=== PATIENT | female | born 1935 | race Caucasian/White ===

== ENCOUNTER 2016-08-14 18:38 | Emergency (ER) | payer MEDICARE, OTHER ==
[2016-08-14 19:14] VITALS: O2SAT 98
[2016-08-14] MEDS ORDERED: ASPIRIN TABLET 325 MG TAB PO ONE (19:42)
--- NOTE | 2016-08-14 19:48 | ED.PDOC ---
History of Present Illness - General Chief Complaint: Neuro Symptoms/Deficits Stated Complaint: numb left index and thumb for 3 days Time Seen by Provider: 08/14/16 18:45 Source: patient, family Exam Limitations: no limitations - History of Present Illness Initial Comments: the patient is an 81-year-old female presenting to the emergency room secondary to left upper extremity complaints. for a period of Approximately 3 days the patient has had the sensation that her thumb and index finger and part of the third digit of her left hand have been asleep. She has also had that same sensation to the radial aspect of her forearm and to a lesser extent her point of her left shoulder. She has also had lingering tingling mild shocking-like sensations to the lateral aspect of her left neck and shoulder as well as the radial aspect of the forearm thumb and index finger. She has had no decrease in strength. Reflexes are actually symmetrical. She has also noted that the thumb and index finger have been cooler and a little more pale for that same time. The patient is a panel clear. She is right-handed. She does not remember injuring her hand. There are no ecchymosis or obvious trauma about the hand. She did not injure her neck. She has not had any strokes. She does not take any blood thinners. She has not had any recent medication changes. She does take Celebrex for arthritis. The patient has a very strong and symmetrical radial pulse. She also has a palpable ulnar pulse. Capillary refill of the palm is good as is capillary refill of the third fourth and fifth digits. Capillary refill of the thumb and index finger are slightly delayed compared to the right hand. There is no true cyanosis and certainly no tissue . Sensation is decreased most at the tip of the index finger. sensation to fine touch largely appears otherwise intact. There is mainly the feeling of the digits being asleep. Again this is been going on for 3 days.no other focal neurological deficits. Severity: mild Improving Factors: nothing Worsening Factors: nothing Associated Symptoms: denies symptoms Allergies/Adverse Reactions: Allergies Sulfa Drugs Allergy (Unverified 07/16/13 00:50) Home Medications: Ambulatory Orders Celebrex 200 mg PO DAILY 02/20/14 Effexor 35.5 mg PO DAILY 02/20/14 Furosemide [Lasix] 40 mg PO DAILY 02/20/14 Levothyroxine Sodium 0.125 mg PO DAILY 02/20/14 Losartan Potassium 02/20/14 Metoprolol Tartrate 25 mg PO DAILY 02/20/14 Potassium 10 mg PO DAILY 02/20/14 Ropinirole ER 12 mg PO DAILY 02/20/14 Review of Systems - Review of Systems Constitutional: States: no symptoms reported EENTM: States: no symptoms reported Respiratory: States: no symptoms reported Cardiology: States: no symptoms reported Gastrointestinal/Abdominal: States: no symptoms reported Genitourinary: States: no symptoms reported Musculoskeletal: States: see HPI Skin: States: see HPI Neurological: States: see HPI Endocrine: States: no symptoms reported All other Systems: No Change from Baseline Past Medical History (General) - Patient Medical History Hx Stroke: No Hx Asthma: Yes Hx Cardiac Disorders: Yes Hx Congestive Heart Failure: No Hx Hypertension: Yes Hx Thyroid Disease: Yes Hx Diabetes: No Hx Gastroesophageal Reflux: Yes Hx MRSA: No - Vaccination History Hx Tetanus, Diphtheria Vaccination: Yes Hx Influenza Vaccination: Yes Hx Pneumococcal Vaccination: Yes Immunizations Up to Date: Yes - Social History Hx Tobacco Use: No Hx Alcohol Use: Yes - occasional Hx Substance Use: No Hx Substance Use Treatment: No Hx Depression: Yes Feels Threatened In Home Enviroment: No Feels Threatened In a Relationship: No Hx Physical Abuse: No Hx Emotional Abuse: No Hx Suspected Abuse: No - Female History Patient is a Female of Child Bearing Age (10 -59 yrs old): No Patient : No - Triage Comment ED Triage Comment: NIHSS 0 at time of triage, upper and lower ext pulses equally strong, cap refill is 5 sec to the left index finger and thumb. no signs of distress, no Chest pain or SOB Family Medical History - Family History Mother Family History: Unknown Living Status: Physical Exam - Physical Exam General Appearance: Alert, Comfortable, No apparent distress Eye Exam: bilateral normal Ears, Nose, Throat: hearing grossly normal, normal ENT inspection, normal pharynx Neck: full range of motion, supple Respiratory: chest non-tender, lungs clear, normal breath sounds, no respiratory distress, no accessory muscle use Cardiovascular/Chest: normal peripheral pulses, regular rate, rhythm, no edema Peripheral Pulses: radial,right: 2+, radial,left: 2+ - ulnar artery pulses palpable Gastrointestinal/Abdominal: non tender, soft Rectal Exam: deferred Back Exam: normal inspection, no CVA tenderness, no vertebral tenderness Extremity: normal range of motion, non-tender, normal inspection, no pedal edema , normal capillary refill Neurologic: compliance officer II-XII nml as tested, alert, normal mood/affect, oriented x 3, other - see history of present illness DTR: 2+: Biceps, left, Biceps, right, Brachioradialis, left, Brachioradialis, right Skin Exam: normal color - with the exception of the mild pallor, and second digit of the left hand. See history of present illness. Comments: Vital Signs - 24 hr 08/14/16 18:45 Temperature 97.9 F Pulse Rate [ 100 H pulse ox] Respiratory 16 Rate Blood Pressure 161/88 [right upper arm] O2 Sat by Pulse 98 Oximetry Progress - Progress Progress: 08/14/16 19:53 the patient is an 81-year-old female presenting with symptoms in the left upper extremity. given the constellation of the patient's symptoms, it is most likely the patient has some impingement of the left C6 nerve root. The patient is already taking imipramine thus we will not add Neurontin. I am going to have the patient take an aspirin daily and she has been given the first dose here. I do not believe a vascular issue is the primary cause given the good radial and ulnar pulses and given the distribution of the symptoms in the hand and the upper arm, shoulder and neck. The patient has had a poor response to steroids in the past thus we will avoid those for now. She is to follow-up with her primary care doctor on Tuesday for reevaluation and to be set up with a neurologist for a nerve conduction test or any other studies deemed necessary at that time. she is to return here for any worsening of symptoms. She is to keep the hand warm. ER warnings were given. - EKG/XRAY/CT CT Ordered: No Departure - Departure Clinical Impression: Cervical radiculopathy at C6 Disposition: Discharge to Home or Self Care Condition: Fair Departure Forms: ED Discharge - Pt. Copy, Patient Portal Self Enrollment Instructions: DI for Cervical Radiculopathy Diet: regular diet Activity: increase activity as tolerated Referrals: Aleksander Daley MD [Primary Care Provider] - 1-2 Weeks Home Medications: Ambulatory Orders Celebrex 200 mg PO DAILY 02/20/14 Effexor 35.5 mg PO DAILY 02/20/14 Furosemide [Lasix] 40 mg PO DAILY 02/20/14 Levothyroxine Sodium 0.125 mg PO DAILY 02/20/14 Losartan Potassium 02/20/14 Metoprolol Tartrate 25 mg PO DAILY 02/20/14 Potassium 10 mg PO DAILY 02/20/14 Ropinirole ER 12 mg PO DAILY 02/20/14 Additional Instructions: the patient is an 81-year-old female presenting with symptoms in the left upper extremity. given the constellation of the patient's symptoms, it is most likely the patient has some impingement of the left C6 nerve root. The patient is already taking imipramine thus we will not add Neurontin. I am going to have the patient take an aspirin daily and she has been given the first dose here. I do not believe a vascular issue is the primary cause given the good radial and ulnar pulses and given the distribution of the symptoms in the hand and the upper arm, shoulder and neck. The patient has had a poor response to steroids in the past thus we will avoid those for now. She is to follow-up with her primary care doctor on Tuesday for reevaluation and to be set up with a neurologist for a nerve conduction test or any other studies deemed necessary at that time. she is to return here for any worsening of symptoms. She is to keep the hand warm. ER warnings were given.
[2016-08-14 20:11] VITALS: BP 148/82; TEMP 98
== END 2016-08-14 20:07 | disposition home or self-care (01) ==
LOC: ER 18:38
DX: M54.12 Radiculopathy, cervical region (principal); J45.909 Unspecified asthma, uncomplicated; I10 Essential (primary) hypertension; E07.9 Disorder of thyroid, unspecified; F32.9 Major depressive disorder, single episode, unspecified; K21.9 Gastro-esophageal reflux disease without esophagitis; Z79.899 Other long term (current) drug therapy; Z88.2 Allergy status to sulfonamides

== ENCOUNTER → 2016-08-16 | Outpatient (CLI) | payer MEDICARE, OTHER | END | disposition home or self-care (01) | LOC: GMAB 12:31 | PROVIDERS: ATTEND Family Medicine | DX: M54.2 Cervicalgia (principal); R20.2 Paresthesia of skin ==

== ENCOUNTER → 2016-08-17 | Outpatient (CLI) | payer MEDICARE, OTHER ==
--- NOTE | 2016-08-18 09:49 | MRI ---
EXAM DESCRIPTION: Cervical Spine CLINICAL HISTORY: 81 years, Female, CERVICALGIA left arm and fingertip numbness COMPARISON: March 09, 2012 TECHNIQUE: Multiplanar multi sequence images of the cervical spine were obtained without gadolinium contrast. FINDINGS: Vertebral body height and alignment are well maintained.There is no bone marrow edema. Alignment of the craniocervical junction is anatomic, and visualized portions of the brainstem and spinal cord are unremarkable. [The paraspinal soft tissues are unremarkable.] There is disc desiccation throughout the cervical and upper thoracic spine. At C2-3, there is bilateral facet joint hypertrophy without significant posterior disc bulging. No central canal or neuroforaminal stenosis. At C3-4, there is bilateral facet and left-sided uncovertebral joint hypertrophy. No significant posterior disc bulging, but findings result in severe left-sided neuroforaminal stenosis. Findings at this level are not significantly changed from February,. At C4-5, there is bilateral facet joint hypertrophy, worse in the left side. Mild left-sided uncovertebral joint hypertrophy without posterior disc bulging. Findings result in mild to moderate left-sided neuroforaminal stenosis, stable. At C5-6, there is broad-based posterior disco-osteophytic ridging with left-sided facet and right-sided uncovertebral joint hypertrophy resulting in moderate bilateral neuroforaminal and mild central canal stenosis. The central canal measures 9 mm AP diameter with disc material approaching and possibly abutting the anterior aspect of the cervical cord. There is no underlying cord edema. Findings at this level are stable from the prior study. At C6-7, there is broad-based posterior disco-osteophytic ridging with right-sided uncovertebral joint hypertrophy resulting in mild central canal and moderate right-sided neuroforaminal stenosis. Disc material approaches and possibly abuts the anterior aspect of the cervical cord without cord edema. Findings at this level are stable or only slightly worse from February,. At C7-T1, there is minimal broad-based posterior disc bulging with bilateral facet joint hypertrophy resulting in moderate bilateral neuroforaminal stenosis, stable. IMPRESSION: Moderately advanced multilevel degenerative changes including disc bulging, facet and uncovertebral joint hypertrophy, central canal and neuroforaminal stenosis as detailed above. Neuroforaminal stenosis is worse on the left side at C3-4, and central canal stenosis is worse at C5-6 and C6-7. Overall, findings are stable or only slightly worse from February,. Electronically signed by: Marc Au MD 08/18/2016 9:48 AM CDT
== END | disposition home or self-care (01) ==
LOC: MRI 09:55
PROVIDERS: ATTEND Family Medicine
DX: M48.02 Spinal stenosis, cervical region (principal); M54.2 Cervicalgia

== ENCOUNTER → 2016-10-11 | Outpatient (CLI) | payer MEDICARE, OTHER | END | disposition home or self-care (01) | LOC: GMAB 10:47 | PROVIDERS: ATTEND Family Medicine | DX: E03.9 Hypothyroidism, unspecified (principal) ==

== ENCOUNTER → 2016-10-28 | Outpatient (CLI) | payer MEDICARE, OTHER ==
--- NOTE | 2016-10-28 17:02 | MRI ---
EXAM DESCRIPTION: Lumbar Spine w/o Contrast CLINICAL HISTORY: RADICULOPATHY back and right lower extremity pain COMPARISON: None Available. TECHNIQUE: MRI of the lumbar spine is performed according to our usual protocol with axial and sagittal multi sequence imaging. FINDINGS: MR of the lumbar spine demonstrates a moderately severe anterior compression deformity of the superior endplate of T12 with moderate retropulsed bone without acute marrow edema consistent with an old injury with partial fusion to the T11 vertebral body anteriorly. Posterior cord displacement and impaction upon the anterior cord is present without severe stenosis at this level. Borderline AP diameter canal stenosis is suspected. A large upper pole benign cyst left kidney and smaller lower pole benign cyst right kidney is noted without retroperitoneal mass or aneurysm. The conus is positioned at the L1-2 level. Mild anterolisthesis of L5 on S1 is present. This appears to be on a degenerative basis with some narrowing of the AP diameter of the thecal sac at this level with advanced facet arthropathy. Multilevel disc desiccation is present with endplate irregularity noted at L4-5 with vertebral and disc height otherwise well-maintained except for the T12 compression deformity. L1-2: Annular bulge with adequate canal and neural foramen and mild facet arthropathy. L2-3: Annular bulge with adequate canal and neural foramina and mild facet arthropathy L3-4: Annular bulge with adequate canal and minimal facet arthropathy with adequate neural foramina. This L4-5: Disc degenerative disease with moderate annular bulge and moderate facet arthropathy. Mild AP diameter canal stenosis with mild posterior epidural lipomatosis contributing to the narrowed AP diameter. Moderately narrowed left neural foramen and milder changes on the right. L5-S1: Moderate degenerative disc disease with annular bulge and advanced facet arthropathy with grade 1 degenerative spondylolisthesis with distorted and mildly narrowed right L5 neural foramen and moderately narrowed left L5 neural foramen. Borderline AP diameter canal stenosis is present. IMPRESSION: 1. Remote moderately severe T12 compression deformity with retropulsed bone and compromise of the anterior thecal sac with borderline AP diameter canal narrowing and flexion of the thoracic cord around the bulging of bony ridge without severe stenosis. 2. Moderate annular bulge L4-5 with mild AP diameter canal stenosis and left greater than right foraminal narrowing from facet disease and disc bulge. 3. Grade 1 degenerative anterolisthesis L5-S1 with thecal sac in the lower range of normal with left greater than right foraminal compromise from facet disease and annular bulge 4. Large upper pole left and smaller lower pole right benign-appearing renal cysts. Electronically signed by: Anirudh Kimble MD 10/28/2016 5:01 PM CDT
== END | disposition home or self-care (01) ==
LOC: MRI 13:57
PROVIDERS: ATTEND Physical Medicine & Rehabilitation
DX: Z12.31 Encounter for screening mammogram for malignant neoplasm of breast (principal); M47.26 Other spondylosis with radiculopathy, lumbar region
CPT/HCPCS: 72148; G0202

== ENCOUNTER → 2016-11-29 | Outpatient (CLI) | payer MEDICARE, OTHER ==
--- NOTE | 2016-11-29 22:50 | US ---
PROCEDURE: Venous,Lower Extremity RT CLINICAL HISTORY and INDICATION: Right leg pain COMPARISON: None. TECHNIQUE: Barnes scale imaging with duplex interrogation of the right lower extremity venous system was performed and multiple static images were obtained. FINDINGS: Utilizing compression and augmentation, there is no deep venous thrombus in the common femoral, superficial femoral or popliteal veins. The posterior tibial and deep peroneal veins are patent and compressible. . The greater saphenous vein at the saphenofemoral junction is patent and compressible. There is no visualization of any subcutaneous fluid collections. There is no visualization of any fluid collections in the right popliteal fossa. There is no evidence of reactive or pathological lymphadenopathy in the evaluated right lower extremity. IMPRESSION: No deep venous thrombosis of the right lower extremity. Location of Interpretation: [id number] Electronically signed by: Trent Thornton MD 11/29/2016 10:49 PM CDT Workstation: [id number]
== END | disposition home or self-care (01) ==
LOC: RAD 11:57
PROVIDERS: ATTEND Family Medicine
DX: M79.604 Pain in right leg (principal)

== ENCOUNTER → 2017-01-05 | Outpatient (CLI) | payer MEDICARE, OTHER | END | disposition home or self-care (01) | LOC: GMAB 10:46 | PROVIDERS: ATTEND Family Medicine | DX: K92.0 Hematemesis (principal) ==

== ENCOUNTER 2017-04-03 18:07 | Inpatient (IN) | payer MEDICARE, OTHER ==
--- NOTE | 2017-04-03 19:27 | ED.PDOC ---
History of Present Illness - General Chief Complaint: General Stated Complaint: R lower leg discomfort, pain w/walking Time Seen by Provider: 04/03/17 18:43 Source: patient, RN notes reviewed, Vital Signs reviewed - History of Present Illness Timing/Duration: 1 week Severity: moderate Improving Factors: nothing Worsening Factors: nothing Associated Symptoms: denies symptoms Allergies/Adverse Reactions: Allergies Sulfa Drugs Allergy (Verified 04/03/17 18:21) Unknown Home Medications: Ambulatory Orders Celebrex 200 mg PO DAILY 02/20/14 Effexor 35.5 mg PO DAILY 02/20/14 Furosemide [Lasix] 40 mg PO DAILY 02/20/14 Levothyroxine Sodium 0.125 mg PO DAILY 02/20/14 Losartan Potassium 02/20/14 Metoprolol Tartrate 25 mg PO DAILY 02/20/14 Potassium 10 mg PO DAILY 02/20/14 Ropinirole ER 12 mg PO DAILY 02/20/14 Review of Systems - Review of Systems Constitutional: States: malaise. Denies: chills, fever EENTM: Denies: ear pain, nose pain, throat pain, mouth pain Respiratory: Denies: cough, orthopnea, short of breath Cardiology: States: edema, palpitations. Denies: chest pain, syncope Gastrointestinal/Abdominal: Denies: abdominal pain, constipation, diarrhea, nausea Genitourinary: Denies: discharge, dysuria, frequency, hematuria Musculoskeletal: Denies: joint pain, joint swelling, muscle pain, muscle stiffness Skin: Denies: change in color, dryness Neurological: Denies: anxiety, depressed, headache, numbness Endocrine: Denies: increased hunger, increased thirst, increased urine Hematologic/Lymphatic: Denies: anemia, blood clots, easy bleeding, easy bruising Past Medical History (General) - Patient Medical History Hx Stroke: No Hx Asthma: Yes Hx Cardiac Disorders: Yes Hx Congestive Heart Failure: No Hx Hypertension: Yes Hx Thyroid Disease: Yes Hx Diabetes: No Hx Gastroesophageal Reflux: Yes Hx MRSA: No - Vaccination History Hx Tetanus, Diphtheria Vaccination: Yes Hx Influenza Vaccination: Yes Hx Pneumococcal Vaccination: Yes - Social History Hx Tobacco Use: No Hx Alcohol Use: Yes - occasional Hx Substance Use: No Hx Substance Use Treatment: No Hx Depression: Yes Hx Physical Abuse: No Hx Emotional Abuse: No Hx Suspected Abuse: No - Female History Patient : No Family Medical History - Family History Mother Family History: Unknown Living Status: Physical Exam - Physical Exam General Appearance: Alert, Anxious, Well Developed, Well Groomed, Well Hydrated , Well Nourished Ears, Nose, Throat: hearing grossly normal, normal ENT inspection Neck: non-tender, full range of motion, supple Respiratory: chest non-tender, lungs clear, normal breath sounds, no respiratory distress, no accessory muscle use Cardiovascular/Chest: normal peripheral pulses, tachycardia, irregularly irregular Peripheral Pulses: radial,right: 2+, dorsalis pedis,right: 2+, dorsalis pedis, left: 2+ Gastrointestinal/Abdominal: normal bowel sounds, non tender, soft Extremity: calf tenderness, inflammation, pedal edema, swelling Neurologic: no motor/sensory deficits, alert, normal mood/affect Progress - Progress Progress: 04/03/17 19:25 04/03/17 19:00 EKG STAT Laboratory Results WBC 6.1 K/mm3 (4.8-10.8) 04/03/17 18:54 RBC 4.14 M/mm3 (4.20-5.40) L 04/03/17 18:54 Hgb 11.7 gm/dL (12.0-16.0) L 04/03/17 18:54 Hct 34.8 % (36.0-47.0) L 04/03/17 18:54 MCV 84.1 fl (81.0-99.0) 04/03/17 18:54 MCH 28.2 pg (27.0-31.0) 04/03/17 18:54 MCHC 33.7 g/dL (33.0-37.0) 04/03/17 18:54 RDW 13.8 % (11.5-14.5) 04/03/17 18:54 Plt Count 267 K/mm3 (130-400) 04/03/17 18:54 MPV 8.3 fl (7.40-10.4) 04/03/17 18:54 Absolute Neuts (auto) 4.10 K/uL (1.8-6.8) 04/03/17 18:54 Absolute Lymphs (auto) 1.10 K/uL (1.0-3.4) 04/03/17 18:54 Absolute Monos (auto) 0.50 K/uL (0.2-0.8) 04/03/17 18:54 Absolute Eos (auto) 0.40 K/uL (0.0-0.4) 04/03/17 18:54 Absolute Basos (auto) 0.10 K/uL (0.0-0.1) 04/03/17 18:54 Neutrophils % 66.9 % (42.0-78.0) 04/03/17 18:54 Lymphocytes % 18.1 % (20.0-50.0) L 04/03/17 18:54 Monocytes % 7.8 % (2.0-9.0) 04/03/17 18:54 Eosinophils % 6.3 % (1.0-5.0) H 04/03/17 18:54 Basophils % 0.9 % (0.0-2.0) 04/03/17 18:54 PT 11.9 SECONDS (9.4-12.5) 04/03/17 18:54 INR 1.050 04/03/17 18:54 PTT (SP) 26.6 SECONDS (25.1-36.5) 04/03/17 18:54 D-Dimer, Quantitative < 230 ng/mL (0-230) 04/03/17 18:54 Sodium 140 mmol/L (135-145) 04/03/17 18:54 Potassium 3.6 mmol/L (3.6-5.0) 04/03/17 18:54 Chloride 106 mmol/L (101-111) 04/03/17 18:54 Carbon Dioxide 28 mmol/L (21-31) 04/03/17 18:54 Anion Gap 9.6 (12-18) L 04/03/17 18:54 BUN 18 mg/dL (7-18) 04/03/17 18:54 Creatinine 1.11 mg/dL (0.6-1.3) 04/03/17 18:54 BUN/Creatinine Ratio 16.2 (10-20) 04/03/17 18:54 Random Glucose 114 mg/dL (70-105) H 04/03/17 18:54 Serum Osmolality 282.2 mOsm/L (275-295) 04/03/17 18:54 Calcium 9.4 mg/dL (8.4-10.2) 04/03/17 18:54 Total Bilirubin 0.4 mg/dL (0.2-1.0) 04/03/17 18:54 AST 19 IU/L (10-42) 04/03/17 18:54 ALT 15 IU/L (10-60) 04/03/17 18:54 Alkaline Phosphatase 66 IU/L (42-121) 04/03/17 18:54 Serum Total Protein 6.6 gm/dL (6.4-8.2) 04/03/17 18:54 Albumin 3.5 g/dl (3.2-5.5) 04/03/17 18:54 Globulin 3.1 gm/dL (2.3-3.5) 04/03/17 18:54 Albumin/Globulin Ratio 1.1 (1.1-1.9) 04/03/17 18:54 04/03/17 19:42 ekg shows narrow complex tachycardia, irregularlly irregular with possible p waves present rate 117, pr NS, qrs 86, qtc 443 04/03/17 19:44 consulted with Yun Reyes for admission, discussed case, lab and ekg findings as well as my concerns. agreeds to admit Departure - Departure Clinical Impression: Cellulitis of right leg, Leg edema, right, Arrhythmia, atrial Time of Disposition: 19:40 Disposition: Admit Patient Condition: Fair Departure Forms: ED Discharge - Pt. Copy, Patient Portal Self Enrollment Diet: resume usual diet Activity: walking as tolerated Referrals: Aleksander Daley MD [Primary Care Provider] - 1-2 Weeks Home Medications: Ambulatory Orders Celebrex 200 mg PO DAILY 02/20/14 Effexor 35.5 mg PO DAILY 02/20/14 Furosemide [Lasix] 40 mg PO DAILY 02/20/14 Levothyroxine Sodium 0.125 mg PO DAILY 02/20/14 Losartan Potassium 02/20/14 Metoprolol Tartrate 25 mg PO DAILY 02/20/14 Potassium 10 mg PO DAILY 02/20/14 Ropinirole ER 12 mg PO DAILY 02/20/14 Decision To Admit - Decistion To Admit Decision to Admit Reason: Admit from ER Decision to Admit Date: 04/03/17 Decision to Admit Time: 19:40
[2017-04-03] MEDS ORDERED: cefTRIAXone SODIUM 1 GM in SODIUM CHL 0.9% 50ML MIN-BAG+ 50 ML IVPB ONE (19:29)
[2017-04-03] MEDS ORDERED: SODIUM CHLORIDE 0.9% 1000ML 1,000 ML IVS ONE (19:29)
[2017-04-03] MEDS ORDERED: SODIUM CHL 0.9% 50ML MIN-BAG+ 50 ML IVPB ONE (19:35)
[2017-04-03] MEDS ORDERED: cefTRIAXone SODIUM 1 GM VIAL ONE (19:35)
--- NOTE | 2017-04-03 21:29 | HP ---
SUPERVISING PHYSICIAN: Anirudh Sifuentes MD CHIEF COMPLAINT: Swollen right lower leg. HISTORY OF PRESENT ILLNESS: This is an 82-year-old female patient who came to the Emergency Room tonight due to swelling in her right lower leg. She has recently returned from a trip to [place] and about 3 or 4 days ago, she noticed her leg was swelling and was reddened. It got to the point today where it hurt so much that she came into the Emergency Room. It is to be noted that she saw Dr. Daley approximately 2-1/2 weeks ago for an upper respiratory infection and was initially given cefdinir. She took 8 days of cefdinir and her condition did not improve. Dr. Daley put her on Levaquin and she took 10 days' worth of Levaquin and finished her seventh dose today. Her right lower leg was found to be edematous. Throughout the dooley area, there is an area of erythema that covers the entire anterior portion of the right lower leg. It is warm to the touch. It is edematous. Her pedal pulses are palpable at +2 bilaterally. She also has some tenderness to the knee and the upper right leg. She said she hurt her leg after doing some yard work back in December and that has continued to bother her throughout. She does have a history of a blood clot approximately 20+ years ago. She also was found to have tachycardia in the Emergency Room. She is on blood pressure medicine, but several months ago, Dr. Daley took her off her beta kieran due to fatigue. She also had SmartBeat done several months ago and her EKG was within normal limits. She received some Rocephin in the Emergency Room prior to the Emergency Room doctor knowing that she had been on a cephalosporin recently. She also received 1 liter of fluids and her heart rate did not improve. Her EKG showed it was regularly irregular. She did have P-waves, but her heart was in the 100s to 1-teens. WBCs in the Emergency Room were 6.1 with hemoglobin 11.7, hematocrit 34.8. D- dimer was normal and her metabolic panel was basically within normal limits. I was called for admission to the hospital. PAST MEDICAL HISTORY: 1. Gastroesophageal reflux disease. 2. Hypertension. 3. Hypothyroidism. 4. Osteoarthritis. 5. Cervical spine disease. 6. Chronic back pain. 7. Macular degeneration. 8. Restless leg syndrome. 9. Mild depression. PAST SURGICAL HISTORY: 1. Hysterectomy. 2. Hernia repair. 3. Lung biopsy. 4. Cholecystectomy. 5. Knee replacement. OUTPATIENT MEDICATIONS: Per the EMR and awaiting verification. ALLERGIES: SULFA. SHE HAS AN ADVERSE REACTION TO ORAL STEROIDS, THEY MAKE HER DEPRESSED. FAMILY HISTORY: Noncontributory. SOCIAL HISTORY: She is retired. She is . She denies any tobacco or illicit drug use. She drinks alcohol on a social basis. REVIEW OF SYSTEMS: GENERAL: Negative for fever, fatigue or weight changes. HEENT: Positive for sinus symptoms. Negative for ear pain, vision changes or sore throat. RESPIRATORY: Positive for cough. Negative for wheezing or shortness of breath. CARDIAC: Negative for chest pain, palpitations or tachycardia. GASTROINTESTINAL: Negative for nausea, vomiting, diarrhea, constipation or abdominal pain. GENITOURINARY: Negative for hematuria, dysuria or polyuria. NEUROLOGIC: Positive for weakness, especially in the right leg. Negative for dizziness or seizures. INTEGUMENT: As per history of present illness. PHYSICAL EXAMINATION: VITAL SIGNS: Afebrile. Heart rate between 94 and 116 beats per minute. Blood pressure 173/107. Respiratory rate 20. O2 saturation 97% on room air. GENERAL: This is an 82-year-old female patient who looks younger than her stated age. She is in no acute distress. HEENT: Normocephalic, atraumatic. Pupils are equal and reactive. She does have clear nasal drainage. Oropharynx is clear. Oral mucous membranes are moist. NECK: Supple without mass. No discernible jugular venous distention. RESPIRATORY: Clear to auscultation bilaterally. CHEST: There is equal rise and fall of the chest with inspiration and expiration. CARDIOVASCULAR: Slightly tachycardic rate and slightly irregular rhythm. ABDOMEN: Soft, nondistended, nontender. Bowel sounds are positive. GENITOURINARY: Deferred. EXTREMITIES: She has an area of erythema on the anterior portion of her right lower leg from knee to ankle. It is warm to touch. It is tender to touch. There is no fluctuance or drainage noted. It is also edematous. Bilateral pedal pulses are palpable at +2. She also has some pain to palpation on her right distal thigh. It is just diffusely tender. NEUROLOGIC: Awake, alert and oriented times three. Cranial nerves II-XII are intact. LABORATORY: Labs and films are as per the history of present illness. ASSESSMENT: 1. Right lower leg cellulitis, failed outpatient treatment. 2. Tachycardia per EKG, new onset. Question if it is multifocal atria tachycardia. She has been on a beta kieran in the past, but was recently discontinued and her mild tachycardia continued in spite of fluids in the Emergency Room. 3. Right upper leg, right knee pain that has been present since December after an injury. It is only slightly improved. 4. Hypertension. 5. Gastroesophageal reflux disease. 6. Restless leg syndrome. 7. Hypothyroidism. 8. Chronic back pain. 9. History of macular degeneration. PLAN: We will admit the patient to the hospital. I will start vancomycin per pharmacy protocol. I have also ordered a venous Doppler for in the morning. Although the D-dimer is negative, she has recently traveled to [place] and we will need to worry about any blood clots. I have also given her a dose of metoprolol succinate for her blood pressure and her tachycardia. It would probably be beneficial for her to followup as an outpatient with cardiology. The last time she saw a certified medical assistant was probably about 9 years ago when she saw Dr. Pineda with [facility]. I started Lovenox for ulcer prophylaxis as well as Protonix for DVT prophylaxis. I ordered routine labs for in the morning as well as ordered blood cultures tonight as well as ESR and CRP. After her medications are verified, I will re-start those. I put her on a cardiac specialist and we will watch her EKG. Otherwise, we will continue to monitor the patient closely and follow as needed. Dr. Sifuentes is the collaborating physician and available for consultation. #[id number] [facility]
[2017-04-03] MEDS ORDERED: VANCOMYCIN PER PHARMACY INJ SCH (22:00)
[2017-04-03] MEDS ORDERED: IV SET AND CAP CHANGE INJ INJ SCH (22:00)
[2017-04-03] MEDS ORDERED: PANTOPRAZOLE SODIUM IV 40 MG VIAL IV SCH (22:00)
[2017-04-03] MEDS ORDERED: ENOXAPARIN SODIUM 40 MG/0.4 ML SYG SUBCU SCH (22:00)
[2017-04-03] MEDS ORDERED: VANCOMYCIN HCL INJ 1,000 MG in SODIUM CHLORIDE 0.9% 250ML 250 ML IVPB ONE (22:30)
[2017-04-03] MEDS: SODIUM CHLORIDE 0.9% (FLUSH) 10 ML SYG IV PRN (22:33)
[2017-04-03] MEDS: HYDROcodone 5MG/APAP 325MG 1 EA TAB PO PRN (22:34)
[2017-04-03] MEDS: CYCLOBENZAPRINE HCL 10 MG TAB PO PRN (22:34)
[2017-04-03] MEDS ORDERED: VANCOMYCIN HCL INJ 1,000 MG VIAL IVPB ONE (23:04)
[2017-04-03] MEDS ORDERED: SODIUM CHLORIDE 0.9% 250ML 250 ML ONE (23:04)
--- NOTE | 2017-04-03 23:20 | PCM.CORE ---
Physician DVT/VTE - Prophylaxis Currently: Patient already on anticoagulation therapy - 2 Moderate Risk Treatments: Early Ambulation *, Sequential Compression Device
[2017-04-04] MEDS: SODIUM CHLORIDE 0.9% (FLUSH) 10 ML SYG IV SCH ×2 (08:55→20:56)
[2017-04-04] MEDS: guaiFENesin ER TAB 600 MG TAB PO SCH ×2 (08:55→20:57)
--- NOTE | 2017-04-04 10:52 | US ---
EXAM DESCRIPTION: Venous Doppler sonogram right lower extremity CLINICAL HISTORY: Right lower leg swelling COMPARISON: [None Available.] TECHNIQUE: Venous Doppler right lower extremity deep venous system from the common femoral vein to the calf veins FINDINGS: Right common femoral vein through the popliteal vein: Normal venous flow with color Doppler. Normal compressibility. Normal augmentation of flow with compression maneuvers Occlusive thrombus in the right posterior tibial vein. This vein is noncompressible. No flow seen with color Doppler Small Kinney cyst IMPRESSION: Deep vein thrombosis in the Right posterior tibial vein of the calf. No deep vein thrombosis from the common femoral vein through the popliteal vein Small Kinney cyst Electronically signed by: Anirudh Ramon MD 04/04/2017 10:51 AM [facility]
[2017-04-04] MEDS: HYDROcodone 5MG/APAP 325MG 1 EA TAB PO PRN ×2 (11:10→22:27)
[2017-04-04] MEDS: CYCLOBENZAPRINE HCL 10 MG TAB PO PRN ×2 (11:10→22:33)
[2017-04-04] MEDS ORDERED: METOPROLOL TARTRATE 25 MG PO SCH (13:00)
[2017-04-04] MEDS ORDERED: LEVOTHYROXINE SODIUM 0.125 MG PO SCH (13:00)
[2017-04-04] MEDS ORDERED: METOPROLOL TARTRATE 25 MG TAB ONE (13:22)
[2017-04-04] MEDS ORDERED: LEVOTHYROXINE SODIUM 0.025 MG TAB ONE ×2 (13:22→22:46)
[2017-04-04] MEDS ORDERED: LEVOTHYROXINE SODIUM 0.1 MG TAB ONE ×2 (13:22→22:46)
[2017-04-04] MEDS ORDERED: APIXABAN 2.5 MG TAB PO ONE ×2 (13:29→13:47)
--- NOTE | 2017-04-04 13:35 | PN ---
DATE: 04/04/17 SUBJECTIVE: The patient is lying in the bed with right leg slightly elevated and head elevated. She is having no significant shortness of breath. She is able to talk in full sentences. There is slightly less tightness, discomfort and increased heat in her right leg compared to yesterday. No shortness of breath. No nausea or vomiting. Appetite is fairly good. OBJECTIVE: VITAL SIGNS: Afebrile. Blood pressure is up to 170/102 and pulse is 104. Saturation 97% on room air. LUNGS: Clear. HEART: Regular. ABDOMEN: Soft with fairly good bowel tones. EXTREMITIES: Right lower extremity shows some edema, 1+ pitting at the dooley with erythema extending to just beneath the knee on the right. Negative Homans. No break in the skin is evident. Still with some erythema though according to the patient, a little less prominent compared to last night. She continues on vancomycin per pharmacy protocol. RADIOLOGY: Ultrasound exam of the veins of the right lower extremity do reveal presence of a distal right posterior tibial venous thrombosis which could be contributing to some of the constellation of symptoms she presents with. There were no other clots noted, but with her current clinical presentation, there may be some more proximal that have not been fully identified yet. LABORATORY : Hemoglobin 11.2, white count 6,000, sedrate elevated at 47. Potassium 4.3, BUN 16, creatinine 1.05, glucose 101. Liver enzymes normal. C- reactive protein 1.2. Albumin 3.1, TSH normal at 3.55. ASSESSMENT: 1. Evidence of right lower extremity inflammatory process, probable cellulitis , having failed outpatient therapy after several courses of antibiotics have been given and clinical condition is worsening. 2. Distal deep venous thrombosis involving the right posterior tibial vein with clinical evidence of possible more proximal thrombosis also being present. 3. History of tachycardia. 4. History of right upper leg, right knee pain since three months after a slight injury, only slightly improved. Will check to see if an x-ray has been taken. 5. History of hypertension. 6. History of gastroesophageal reflux disease. 7. History of restless leg syndrome. 8. History of hypothyroidism on supplementation with normal TSH. 9. History of chronic back pain. 10. History of macular degeneration. PLAN: We will discuss with Dr. Daley options of therapeutic intervention. At this time, we will start the patient on Eliquis 10 mg b.i.d. for 14 days and then decrease to 5 mg b.i.d. for a duration of DVT prophylaxis. Even though it is a peripheral DVT, the possibility of having missed a more proximal one because of the patient's clinical presentation is to be considered. Continue with the course of antibiotic therapy and reevaluate in the morning. She will have close followup with Dr. Daley in the clinic when condition warrants. [facility][id number] [facility]
[2017-04-04] MEDS ORDERED: METOPROLOL TARTRATE 25 MG TAB PO ONE (13:39)
[2017-04-04] MEDS: LEVOTHYROXINE SODIUM 0.1 MG, LEVOTHYROXINE SODIUM 0.025 MG PO SCH ×2 (13:51)
[2017-04-04] MEDS: FUROSEMIDE 40 MG TAB PO SCH (13:51)
[2017-04-04] MEDS ORDERED: WARFARIN SODIUM 5 MG, WARFARIN SODIUM 2.5 MG PO ONE ×2 (14:10)
[2017-04-04] MEDS ORDERED: WARFARIN SODIUM 5 MG TAB ONE (14:47)
[2017-04-04] MEDS ORDERED: WARFARIN SODIUM 2.5 MG TAB ONE (14:48)
[2017-04-04] MEDS: SUCRALFATE 1 GM/10 ML 1 GM UD PO SCH ×2 (14:58→20:56)
[2017-04-04] MEDS ORDERED: cloNIDine HCL 0.1 MG TAB PO PRN (16:13)
[2017-04-04] MEDS: PANTOPRAZOLE SODIUM TAB 40 MG PO SCH (16:17)
[2017-04-04] MEDS: LOSARTAN POTASSIUM 100 MG TAB PO SCH (16:51)
[2017-04-04] MEDS ORDERED: METOPROLOL SUCCINATE XL 25 MG TAB PO ONE (20:40)
[2017-04-04] MEDS: ENOXAPARIN SODIUM 60 MG/0.6 ML SYG SUBCU SCH (20:56)
[2017-04-04] MEDS: GABAPENTIN 100 MG CAP PO SCH (20:56)
[2017-04-04] MEDS: IMIPRAMINE HCL 25 MG TAB PO SCH (20:57)
[2017-04-04] MEDS: VENLAFAXINE HCL TAB 75 MG TAB PO SCH (20:57)
[2017-04-04] MEDS ORDERED: ENOXAPARIN SODIUM 40 MG/0.4 ML SYG SUBCU SCH (21:00)
[2017-04-04] MEDS ORDERED: APIXABAN 2.5 MG TAB PO SCH (21:00)
[2017-04-04] MEDS: METOPROLOL SUCCINATE XL 25 MG TAB PO SCH (21:33)
[2017-04-04] MEDS ORDERED: SODIUM CHLORIDE 0.9% 250ML 250 ML ONE (22:45)
[2017-04-04] MEDS ORDERED: VANCOMYCIN HCL INJ 1,000 MG VIAL IVPB ONE (22:46)
[2017-04-04] MEDS: SODIUM CHLORIDE 0.9% (FLUSH) 10 ML SYG IV PRN (22:52)
[2017-04-04] MEDS ORDERED: VANCOMYCIN HCL INJ 1,000 MG in SODIUM CHLORIDE 0.9% 250ML 250 ML IVPB SCH (23:00)
[2017-04-05] MEDS: HYDROcodone 5MG/APAP 325MG 1 EA TAB PO PRN ×3 (05:47→23:13)
[2017-04-05] MEDS: LEVOTHYROXINE SODIUM 0.1 MG, LEVOTHYROXINE SODIUM 0.025 MG PO SCH ×2 (06:46)
[2017-04-05] MEDS: SUCRALFATE 1 GM/10 ML 1 GM UD PO SCH ×4 (06:46→21:11)
[2017-04-05] MEDS: PANTOPRAZOLE SODIUM TAB 40 MG PO SCH (06:46)
[2017-04-05] MEDS ORDERED: PANTOPRAZOLE SODIUM TAB 40 MG PO SCH (07:00)
[2017-04-05] MEDS ORDERED: POLYETHYLENE GLYCOL 3350 17 GM PCKT ONE (07:49)
[2017-04-05] MEDS: POTASSIUM CHLORIDE 10 MEQ TAB PO SCH (08:03)
[2017-04-05] MEDS: traMADol HCL 50 MG TAB PO PRN ×2 (08:05→20:20)
[2017-04-05] MEDS: NON-FORMULARY MEDICATION 1 EA MIS (Fluticasone Furoate-Vilanterol [Breo Ellipta 100-25 Mcg INH SCH (08:17)
[2017-04-05] MEDS: POLYETHYLENE GLYCOL 3350 17 GM PCKT PO SCH (09:27)
[2017-04-05] MEDS: VENLAFAXINE HCL TAB 75 MG TAB PO SCH ×2 (09:27→21:12)
[2017-04-05] MEDS: SODIUM CHLORIDE 0.9% (FLUSH) 10 ML SYG IV SCH ×2 (09:28→21:11)
[2017-04-05] MEDS: LOSARTAN POTASSIUM 100 MG TAB PO SCH (09:28)
[2017-04-05] MEDS: ENOXAPARIN SODIUM 60 MG/0.6 ML SYG SUBCU SCH ×2 (09:28→21:12)
[2017-04-05] MEDS: FUROSEMIDE 40 MG TAB PO SCH (09:28)
[2017-04-05] MEDS: guaiFENesin ER TAB 600 MG TAB PO SCH ×2 (09:28→21:12)
[2017-04-05] MEDS ORDERED: WARFARIN SODIUM 3 MG TAB PO ONE (14:57)
--- NOTE | 2017-04-05 17:46 | PN ---
DATE: 04/05/17 SUBJECTIVE: Mrs. Holm is up in a wheelchair and is actually feeling much improved today. She is wearing pantyhose of a good support, variety and size which significantly is helping to prevent any filling of her superficial veins bilaterally. She is even expressing an interest in being able to learn how to give herself the Lovenox shots so she would be able to continue the Lovenox bridge for the coumadinization dosings at home as of tomorrow. OBJECTIVE: See vitals. LUNGS: Clear. HEART: Regular. No dyspnea is present. ABDOMEN: Soft.. EXTREMITIES: Her leg appears to be less erythematosus and less swollen today compared to yesterday. ASSESSMENT: 1. Evidence of right lower extremity inflammatory process, probable cellulitis , having failed outpatient therapy after several courses of antibiotics have been given and clinical condition is worsening. 2. Distal deep venous thrombosis involving the right posterior tibial vein with clinical evidence of possible more proximal thrombosis also being present. 3. History of tachycardia. 4. History of right upper leg, right knee pain since three months after a slight injury, only slightly improved. Will check to see if an x-ray has been taken. 5. History of hypertension. 6. History of gastroesophageal reflux disease. 7. History of restless leg syndrome. 8. History of hypothyroidism on supplementation with normal TSH. 9. History of chronic back pain. 10. History of macular degeneration. PLAN: Continue with the program to allow the patient to become acquainted with the Lovenox administration subcutaneously. If she is comfortable, we will consider discharge tomorrow after the ProTime has been completed and tomorrow's dose of Coumadin can be ordered. She will then have followup closely with Dr. Daley. His office will need to be notified so arrangements can be made for ProTime determinations at a frequency as requested by Dr. Daley. She is to continue to wear the panty hose to provide gradual hydrostatic pressure preventing superficial venous filling and allow as much blood as possible to go through the deep veins to allow resolution of the clot present. We will also consider our continued course of antibiotic therapy and if condition clinically shows continued improvement on vancomycin we will consider a course of doxycycline at home. The patient is allergic to SULFA medication. Reevaluation in the morning and continuation of the Lovenox bridge to coumadinization will continue. [facility][id number] [facility]
[2017-04-05] MEDS ORDERED: LEVOTHYROXINE SODIUM 0.025 MG TAB ONE (20:07)
[2017-04-05] MEDS ORDERED: LEVOTHYROXINE SODIUM 0.1 MG TAB ONE (20:07)
[2017-04-05] MEDS: METOPROLOL SUCCINATE XL 25 MG TAB PO SCH (21:11)
[2017-04-05] MEDS: IMIPRAMINE HCL 25 MG TAB PO SCH (21:11)
[2017-04-05] MEDS: GABAPENTIN 100 MG CAP PO SCH (21:12)
[2017-04-05] MEDS: CYCLOBENZAPRINE HCL 10 MG TAB PO PRN (21:46)
[2017-04-05] MEDS ORDERED: ONDANSETRON INJ 4 MG/2 ML VIAL IV PRN (22:09)
[2017-04-05] MEDS ORDERED: KETOROLAC TROMETHAMINE INJ 30 MG/ML VIAL IV PRN (22:59)
[2017-04-05] MEDS ORDERED: VANCOMYCIN HCL INJ 1,000 MG, VANCOMYCIN HCL INJ 250 MG in SODIUM CHLORIDE 0.9% 250ML 25... IVPB SCH (23:00)
[2017-04-05] MEDS ORDERED: SODIUM CHLORIDE 0.9% 250ML 250 ML ONE (23:03)
[2017-04-05] MEDS ORDERED: VANCOMYCIN HCL INJ 1,000 MG VIAL IVPB ONE (23:03)
[2017-04-05] MEDS ORDERED: VANCOMYCIN HCL INJ 500 MG VIAL ONE (23:03)
[2017-04-06] MEDS: PANTOPRAZOLE SODIUM TAB 40 MG PO SCH (06:41)
[2017-04-06] MEDS: SUCRALFATE 1 GM/10 ML 1 GM UD PO SCH ×2 (06:41→09:16)
[2017-04-06] MEDS: LEVOTHYROXINE SODIUM 0.1 MG, LEVOTHYROXINE SODIUM 0.025 MG PO SCH ×2 (06:41)
[2017-04-06] MEDS: guaiFENesin ER TAB 600 MG TAB PO SCH (09:15)
[2017-04-06] MEDS: FUROSEMIDE 40 MG TAB PO SCH (09:15)
[2017-04-06] MEDS: POTASSIUM CHLORIDE 10 MEQ TAB PO SCH (09:15)
[2017-04-06] MEDS: VENLAFAXINE HCL TAB 75 MG TAB PO SCH (09:15)
[2017-04-06] MEDS: LOSARTAN POTASSIUM 100 MG TAB PO SCH (09:16)
[2017-04-06] MEDS: POLYETHYLENE GLYCOL 3350 17 GM PCKT PO SCH (09:16)
[2017-04-06] MEDS: ENOXAPARIN SODIUM 60 MG/0.6 ML SYG SUBCU SCH (09:16)
[2017-04-06] MEDS: SODIUM CHLORIDE 0.9% (FLUSH) 10 ML SYG IV SCH (09:16)
[2017-04-06] MEDS ORDERED: WARFARIN SODIUM 5 MG, WARFARIN SODIUM 2.5 MG PO ONE ×2 (10:26)
[2017-04-06 10:28] VITALS: O2SAT 96
[2017-04-06] MEDS ORDERED: WARFARIN SODIUM 2.5 MG TAB ONE (11:13)
[2017-04-06] MEDS ORDERED: WARFARIN SODIUM 5 MG TAB ONE (11:13)
[2017-04-06 11:25] VITALS: BP 156/87; TEMP 97.9
[2017-04-06] MEDS: NON-FORMULARY MEDICATION 1 EA MIS (Fluticasone Furoate-Vilanterol [Breo Ellipta 100-25 Mcg INH SCH (13:16)
--- NOTE | 2017-04-07 10:16 | DS ---
SUPERVISING PHYSICIAN: Jordan Zhao MD DISCHARGE DIAGNOSIS: 1. Right lower extremity inflammatory process, probable cellulitis, having failed to respond to outpatient therapy with several courses of antibiotics having been given and clinical condition is worsened, requiring hospitalization for initiation of antibiotic therapy with further investigation indicating a deep venous thrombosis of the same leg with the patient showing good clinical response once started on Coumadin and vancomycin. 2. Distal deep venous thrombosis involving the right posterior tibial vein with clinical evidence of possible more proximal thrombosis, started on Lovenox and transitioned to Coumadin. 3. History of tachycardia. 4. History of right upper leg, right knee pain since three months after a slight injury, only slightly improved, with no acute findings. 5. Hypertension. 6. Gastroesophageal reflux disease. 7. Restless leg syndrome. 8. Hypothyroidism. 9. Chronic back pain. 10. Macular degeneration. REASON FOR HOSPITALIZATION: Ms. Biggs is an 82-year-old female patient who came to the Emergency Room on 04/03/17 due to swelling in her right lower leg. She has recently returned from a lengthy trip to [place] and about 3 or 4 days ago, she noticed her leg was swelling and was reddened. It got to the point on the day of admission where it hurt so much that she came into the Emergency Room. It was noted in her history that she had seen Dr. Daley approximately 2-1 /2 weeks previous for an upper respiratory infection and was initially given cefdinir. She took 8 days of cefdinir and her condition did not improve. Dr. Daley put her on Levaquin and she took 10 days' worth of Levaquin and finished her seventh dose. Her right lower leg was found to be edematous. Throughout the dooley area, there was an area of that covered the entire anterior portion of the right lower leg. It was warm to the touch. It was edematous. Her pedal pulses were palpable at +2 bilaterally. She also had some tenderness to the knee and the upper right leg. She said she hurt her leg after doing some yard work back in December and that has continued to bother her throughout. She does have a history of a blood clot approximately 20+ years ago. She also was found to have tachycardia in the Emergency Room. She is on blood pressure medicine, but several months ago, Dr. Daley took her off her beta kieran due to fatigue. She also had SmartBeat done several months ago and her EKG was within normal limits. She received some Rocephin in the Emergency Room prior to the Emergency Room doctor knowing that she had been on a cephalosporin recently. She also received 1 liter of fluids and her heart rate did not improve. Her EKG showed it was regularly irregular. She did have P-waves, but her heart was in the 100s to 1-teens. WBCs in the Emergency Room were 6.1 with hemoglobin 11.7, hematocrit 34.8. D-dimer was normal and her metabolic panel was basically within normal limits. At that point, she was admitted to the hospital for continuation of treatment of underlying cellulitis and possible DVT. LABORATORY: Initial white count on admission was 6,100 and at discharge was 6, 000. Hemoglobin and hematocrit were stable and on discharge were 11.2 and 33.6. Platelet count was within normal limits at 345,000. Differential was within normal limits without a left shift. Sedrate was elevated at 47. Coagulation studies normal PT, PT-T with initial INR of 1.05 with D-dimer less than 230. After initiation of Lovenox and one dose of Coumadin, her INR was increased slightly to 1.27, but not therapeutic. Chemistries were within normal limits with potassium 4.3 at discharge, BUN 16, creatinine 1.05. C- reactive protein was only slightly elevated at 1.2. Liver functions were within normal limits. TSH normal at 3.55. She had one vancomycin trough that was 9.6. MICROBIOLOGY: Blood cultures remained negative at 48 hours. RADIOLOGY: She had only had one study done and was a lower extremity Doppler. Per radiologic interpretation, there was note of deep venous thrombosis in the right posterior tibial vein of the calf. There was no deep venous thrombosis in the common femoral vein through the popliteal vein. Also of note was a small Kinney's cyst. HOSPITAL COURSE: Ms. Holm was admitted as noted in reason for hospitalization secondary to underlying cellulitis and further workup of possible DVT. She was found to have a DVT of the right lower extremity. At that point, she was started on Lovenox 60 mg b.i.d. as well as warfarin with anticipating of bridging to warfarin chronically. There was an attempt to start her on Eliquis , however, her insurance was not willing to pay for this medication, therefore, after discussion with Dr. Daley and the patient, it decided the best financial course was to continue with warfarin. The patient was also started on vancomycin and the leg did show improvement. She was also placed in some compression hose with pantyhose which did result in some decrease in the edema to the right lower extremity. Her pain did decrease and was able to ambulate without any difficulty. She was having no shortness of breath and was hemodynamically stable with vital signs at discharge showing temperature 97.9, pulse 79, blood pressure 156/87, saturation 96% on room air. She was felt clinically well enough to be continued on outpatient treatment plan. Therefore , she was discharged. PLAN: Ms. Holm was discharged on 04/06/17 with instructions to followup with Dr. Daley next week on 04/12/17 at 10 AM. She was to resume her medications that included to resume her home medications as directed and start warfarin on the morning of 04/07/17 with a repeat INR on 04/08/17 to be performed by home health with results being sent to Dr. Daley with Dr. Daley continuing dosing based on those results. She was to continue Lovenox 60 mg subcutaneously twice daily with home health assistance and to be continued by Dr. Daley as needed until she was therapeutic on Coumadin. She was also continued on antibiotic therapy to include doxycycline 100 mg q.12h. for 7 days. She was to keep her leg elevated when sitting and wear compression hose as instructed and return to the hospital should she have any concerning symptoms. At time of discharge, all other home medications were continued. New medications include: 1. Warfarin 7.5 mg daily for 3 days, to be continued by Dr. Daley. 2. Doxycycline 100 mg q.12h. for 7 days. 3. Lovenox 60 mg subcutaneously twice a day, to be continued by Dr. Daley as needed. DIET AT DISCHARGE: Regular diet as tolerated. ACTIVITY: As tolerated. CONDITION AT DISCHARGE: Stable and improved. #[id number] [facility]
== END 2017-04-06 12:30 | disposition home health service (06) | DRG 300 ==
LOC: ER 18:07 → OBSVTOIN 21:27 → MS 21:27
PROVIDERS: ADMIT Nurse Practitioner Acute Care; ATTEND Nurse Practitioner Family
DX: I82.441 Acute embolism and thrombosis of right tibial vein (principal); L03.115 Cellulitis of right lower limb; I82.411 Acute embolism and thrombosis of right femoral vein; I10 Essential (primary) hypertension; K21.9 Gastro-esophageal reflux disease without esophagitis; G25.81 Restless legs syndrome; E03.9 Hypothyroidism, unspecified; G89.29 Other chronic pain; M54.9 Dorsalgia, unspecified; H35.30 Unspecified macular degeneration; M19.90 Unspecified osteoarthritis, unspecified site; F32.9 Major depressive disorder, single episode, unspecified; Z96.659 Presence of unspecified artificial knee joint; Z88.2 Allergy status to sulfonamides; Z79.1 Long term (current) use of non-steroidal anti-inflammatories (NSAID); Z79.899 Other long term (current) drug therapy

== ENCOUNTER → 2017-04-20 | Outpatient (CLI) | payer MEDICARE, OTHER | END | disposition home or self-care (01) | LOC: GMAB 13:20 | PROVIDERS: ATTEND Family Medicine | DX: M79.672 Pain in left foot (principal) ==

== ENCOUNTER → 2017-04-27 | Outpatient (CLI) | payer MEDICARE, OTHER | END | disposition home or self-care (01) | LOC: RESP 10:35 | PROVIDERS: ATTEND Family Medicine | DX: R55 Syncope and collapse (principal) ==

== ENCOUNTER → 2017-05-18 | Outpatient (CLI) | payer MEDICARE, OTHER ==
--- NOTE | 2017-05-18 09:50 | MRI ---
Study: MRI of the Right Knee. Indication: PAIN IN RIGHT KNEE Technique: Multiplanar, multi sequence MRI of the right knee was obtained without intravenous contrast. Comparison: None Findings: Remote partial-thickness ACL tear with laxity and attenuation but without full-thickness transection. Mild mucoid degeneration PCL. Both the MCL and FCL are slightly thickened and lax with mild increased internal PD signal. In addition, there is mild thickening of the distal IT band. These findings can be seen in the setting of the osteoarthritic knee. No acute tear defect of the medial or lateral collateral structures. Irregular high-grade radial tearing throughout the medial meniscus and most pronounced at the body where there is reduction of meniscal caliber by 75% with extrusion of the body by 5 mm. Severe medial compartment osteoarthritis with complete grade 4 chondral loss, significant cortical remodeling, extensive marrow edema throughout the medial femoral condyle and medial tibial plateau. Radial free edge tearing posterior root attachment lateral meniscus without transection. Patchy areas of grade 2 chondrosis throughout the lateral compartment. Tendinosis quadriceps tendon insertion. Patellar tendon intact. Patella normally located. Extensive grade 4 chondral loss of the patellar apex extending into the medial and lateral facets with cortical remodeling patchy subchondral marrow change. Moderate size knee effusion with scattered synovitis debris. No acute fracture. 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 Extensive radial tearing throughout the medial meniscus with marked attenuation and extrusion of the body. Radial free edge tearing posterior root attachment lateral meniscus. Changes of the capsular structures which can be seen in the setting of osteoarthritis. Remote partial-thickness ACL tear with mild mucoid degeneration PCL. Moderate size knee effusion. Tendinosis quadriceps tendon insertion. Electronically signed by: Greg Marie MD 05/18/2017 9:49 AM [facility]
--- NOTE | 2017-05-18 10:19 | MRI ---
EXAM DESCRIPTION: MRI left ankle CLINICAL HISTORY: Torn anterior tibial tendon. Ankle pain COMPARISON: None. TECHNIQUE: Multiplanar, multisequence MR images of the left ankle FINDINGS: Marker placed at the insertion of the tibialis anterior tendon on the medial cuneiform and base of the first metatarsal. Long segment intrinsic tendon signal abnormality from tendinosis and interstitial partial tear over about 4.2 cm. The tendon is lax, demonstrated on the sagittal STIR sequence. Edema in the medial cuneiform and base of the first metatarsal at the insertion with small volume distal tendon sheath effusion. The other extensor tendons are intact Chronic distal insertional posterior tibial tendinosis. Stretch of the calcaneonavicular ligament with mild flatfoot. Flexor digitorum and flexor hallux tendons are normal Small common peroneal tendon sheath effusion. No peroneal tendon tear Midfoot arthrosis most severely intermetatarsal between the bases of the second and third metatarsals but also arthrosis of the second through fifth tarsometatarsal joints with chondrosis, a few tiny subchondral cysts and small marginal osteophytes. Marrow edema mostly in the base of the second third metatarsal and in the middle and lateral cuneiform. No osteochondral lesion of the ankle, subtalar, calcaneocuboid or talonavicular Moderate-sized well-corticated plantar calcaneal spur with chronic middle bundle plantar fascial thickening. Edema in the subcutaneous fat deep to the plantar fascia and calcaneus. No plantar fascial tear or osseous abnormality at the calcaneal insertion Ankle ligaments are intact IMPRESSION: Severe anterior tibial tendinosis/interstitial partial tear with tendon laxity. 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
== END ==
LOC: MRI 07:44
PROVIDERS: ATTEND Family Medicine
DX: M76.812 Anterior tibial syndrome, left leg (principal); M76.829 Posterior tibial tendinitis, unspecified leg; S83.241A Other tear of medial meniscus, current injury, right knee, initial encounter; S83.511A Sprain of anterior cruciate ligament of right knee, initial encounter; M17.11 Unilateral primary osteoarthritis, right knee

== ENCOUNTER → 2017-05-19 | Outpatient (CLI) | payer MEDICARE, OTHER ==
--- NOTE | 2017-05-23 07:41 | RAD ---
EXAM DESCRIPTION: Knee,Right Complete CLINICAL HISTORY: 82 years, Female, KNEE PAIN COMPARISON: None TECHNIQUE: Four views of the right knee FINDINGS: Severe sclerotic bone on bone degenerative changes with medial joint compartment of the knee with complete loss of the articular surface and small marginal osteophytes is noted. Moderate joint effusion is present with modest patellofemoral degenerative arthritis with marginal osteophytes and relative preservation of the lateral joint compartment. An acute fracture is not apparent. IMPRESSION: 1. Severe [id number] degenerative arthropathy medial joint compartment right knee with complete loss of articular cartilage and subchondral sclerosis Electronically signed by: Anirudh Kimble MD 05/23/2017 7:40 AM [facility]
--- NOTE | 2017-05-23 07:43 | RAD ---
EXAM DESCRIPTION: Pelvis CLINICAL HISTORY: 82 years Female, HIP PAIN COMPARISON: None. FINDINGS: The bony pelvis is intact. Minimal left and mild right hip degenerative arthropathy is present without fracture or dislocation. Marked loss of joint space is not apparent in the bony pelvic ring is well preserved with grossly normal appearance of the SI joints. IMPRESSION: No acute abnormality noted. Electronically signed by: Anirudh Kimble MD 05/23/2017 7:42 AM [facility]
== END ==
LOC: RAD 07:45
PROVIDERS: ATTEND Orthopaedic Surgery
DX: M25.561 Pain in right knee (principal); M25.551 Pain in right hip

== ENCOUNTER → 2017-05-23 | Outpatient (CLI) | payer MEDICARE, OTHER | LOC: LAB.O 13:14 | PROVIDERS: ATTEND Orthopaedic Surgery | DX: Z01.818 Encounter for other preprocedural examination (principal) ==

== ENCOUNTER → 2017-05-24 | Outpatient (CLI) | payer MEDICARE, OTHER | LOC: GMAB 10:27 | PROVIDERS: ATTEND Family Medicine | DX: N39.0 Urinary tract infection, site not specified (principal) ==

== ENCOUNTER → 2017-05-25 | Outpatient (CLI) | payer MEDICARE, OTHER ==
--- NOTE | 2017-05-25 15:40 | US ---
EXAM DESCRIPTION: Venous,Lower Extremity RT: ULTRASOUND. CLINICAL HISTORY: PHLEBITIS AND THROMBOPHLEBITIS COMPARISON: None Available. TECHNIQUE: Two -dimensional and doppler sonographic evaluation of the deep venous system of the right lower extremity. FINDINGS: Doppler evaluation shows normal color flow and normal phasicity and augmentation of the right common femoral vein, femoral vein, popliteal vein, greater saphenous vein, peroneal vein, and posterior tibial vein. The right lower extremity deep veins showed normal occlusion with transducer pressure. Two-dimensional survey showed no echogenic thrombus within these veins. IMPRESSION: 1. Duplex ultrasound evaluation of the right lower extremity deep venous system showing no evidence of thrombosis or embolism. Electronically signed by: Abraham Layne MD 05/25/2017 3:40 PM [employer]
== END ==
LOC: US 10:05
PROVIDERS: ATTEND Family Medicine
DX: I80.201 Phlebitis and thrombophlebitis of unspecified deep vessels of right lower extremity (principal)

== ENCOUNTER 2017-05-31 05:42 | Inpatient (IN) | payer MEDICARE, OTHER ==
--- NOTE | 2017-05-30 11:40 | HP ---
CHIEF COMPLAINT: Right knee pain. HISTORY OF PRESENT ILLNESS: Ms. Holm is an 82-year-old female with a history of pain in the right knee. It has been going on for several years. She has had injections. She has been unable to get relief now and is walking with a cane. Because of her ongoing pain and the severity with which is affecting her daily activities, she has requested operative intervention. After discussing the risks, benefits and alternatives to operative therapy, the patient has given informed consent. PAST SURGICAL HISTORY: None. MEDICATIONS: 1. Catapres. 2. Diclofenac. 3. Coumadin. 4. Venlafaxine. 5. Losartan. 6. Gabapentin. 7. Protonix. 8. Levothyroxine. 9. Lasix. 10. Potassium. 11. Requip. 12. Fosamax. 13. Imipramine. 14. MiraLAX. 15. Tramadol. 16. Cyclobenzaprine. 17. Multiple vitamins. ALLERGIES: SULFA, DEPO-MEDROL. CODE STATUS: Full code. IMMUNIZATIONS: Up to date. SOCIAL HISTORY: The patient does not smoke or use any illicit drugs. She does drink on occasion. FAMILY HISTORY: None pertinent to today's complaint. REVIEW OF SYSTEMS: Negative except as indicated in the History of Present Illness. PHYSICAL EXAMINATION: VITAL SIGNS: Blood pressure 110/55. Pulse 110. Height 5'5". Weight 167. MENTAL STATUS: The patient is awake, alert, and is able to give a good history and participate in the physical. The patient is oriented to person, place and time. SKIN: Normal tone and turgor. HEENT: Normocephalic, atraumatic. Pupils equal, round and reactive. Mucosal membranes are moist. NECK: Normal range of motion. No thyromegaly, no lymphadenopathy. CHEST: Normal respiratory excursion. CARDIAC: Regular rate and rhythm. No murmurs, rubs or gallops. MUSCULOSKELETAL: Bilateral upper extremities show full active range of motion without pain. She has intact sensation in the extremities and they are warm and well perfused. She has no deformity and no crepitus with range of motion. The left lower extremity shows full range of motion of the hip. She has full extension of the knee with flexion to about 115 to 120 degrees. There is no deformity. She has no varus/valgus or anterior/posterior laxity. The right lower extremity shows full range of motion in the hip. She has slight varus deformity to the knee. Sensation is intact. It is warm and well perfused. She has full extension with flexion to about 115 degrees. She is extremely tender to palpation along the medial aspect. IMAGING: X-rays show advanced arthritis. ASSESSMENT: 1. Osteoarthritis. PLAN: The plan at this point is for total knee arthroplasty. We have discussed the risks, benefits, and alternatives to that and the patient has given informed consent. #[id number] [facility]
[2017-05-31] MEDS ORDERED: LACTATED RINGERS 1,000 ML ONE ×3 (06:01→09:16)
[2017-05-31] MEDS ORDERED: VANCOMYCIN HCL INJ 1,000 MG VIAL IVPB ONE ×2 (06:01→17:11)
[2017-05-31] MEDS ORDERED: TRANEXAMIC ACID 1,000 MG/10 ML VIAL ONE ×2 (06:01→06:02)
[2017-05-31] MEDS ORDERED: SODIUM CHL 0.9% 100ML MINI-BAG 100 ML IVPB ONE (06:01)
[2017-05-31] MEDS ORDERED: ceFAZolin SODIUM 1 GM VIAL ONE ×2 (06:01→06:21)
[2017-05-31] MEDS ORDERED: SODIUM CHLORIDE 0.9% 250ML 250 ML ONE ×2 (06:02→17:11)
[2017-05-31] MEDS ORDERED: SODIUM CHLORIDE 0.9% 100ML 100 ML IVPB ONE (06:02)
[2017-05-31] MEDS ORDERED: MORPHINE SULF *EPIDURAL* 1 MG/ML VIAL ONE (06:05)
[2017-05-31] MEDS ORDERED: MIDAZOLAM INJ 2 MG/2 ML VIAL ONE (06:06)
[2017-05-31] MEDS ORDERED: fentaNYL CITRATE INJ 50 MCG/ML AMP ONE (06:06)
[2017-05-31] MEDS ORDERED: ROCURONIUM BROMIDE 10 MG/ML VIAL ONE (06:07)
[2017-05-31] MEDS: VANCOMYCIN HCL INJ 1,000 MG VIAL IVPB ONE ×2 (07:48→08:40)
[2017-05-31] MEDS: ceFAZolin SODIUM 1 GM VIAL ONE ×2 (07:48→08:40)
[2017-05-31] MEDS: BUPIVACAINE 0.25% W/EPI 50 ML VIAL INJ ONE ×2 (08:40→08:52)
[2017-05-31] MEDS ORDERED: ACETAMINOPHEN 500 MG TAB PO PRN (09:03)
[2017-05-31] MEDS ORDERED: TEMAZEPAM 15 MG CAP PO PRN (09:03)
[2017-05-31] MEDS ORDERED: ALUMINUM & MAGNESIUM HYDROXIDE 30 ML UD PO PRN (09:03)
[2017-05-31] MEDS ORDERED: PROMETHAZINE HCL INJ 25 MG in SODIUM CHLORIDE 0.9% 50ML 50 ML IVPB PRN (09:03)
[2017-05-31] MEDS ORDERED: BENZOCAINE-MENTH LOZ (CEPACOL) 1 EA LOZ MT PRN (09:03)
[2017-05-31] MEDS ORDERED: PROMETHAZINE HCL INJ 12.5 MG in SODIUM CHLORIDE 0.9% 50ML 50 ML IVPB PRN (09:03)
[2017-05-31] MEDS ORDERED: TRANEXAMIC ACID INJ 1,000 MG in SODIUM CHLORIDE 0.9% 100ML 100 ML IVPB ONE (09:03)
[2017-05-31] MEDS ORDERED: BISACODYL SUPPOSITORY 10 MG PR PRN (09:03)
[2017-05-31] MEDS ORDERED: MORPHINE SULFATE INJ 10 MG/ML VIAL IV PRN (09:03)
[2017-05-31] MEDS ORDERED: DEX 5% W/NACL 0.45% 1000ML 1,000 ML IVS PRN (09:03)
[2017-05-31] MEDS ORDERED: NALOXONE HCL INJ 0.4 MG/ML VIAL IV PRN (09:03)
[2017-05-31] MEDS ORDERED: MORPHINE SULFATE INJ 10 MG/ML VIAL IM PRN (09:03)
[2017-05-31] MEDS ORDERED: ACETAMINOPHEN 325 MG TAB PO PRN (09:03)
[2017-05-31] MEDS ORDERED: ONDANSETRON INJ 4 MG/2 ML VIAL IV PRN (09:03)
[2017-05-31] MEDS ORDERED: MAGNESIUM HYDROXIDE 30 ML UD PO PRN (09:03)
[2017-05-31] MEDS ORDERED: SODIUM CHLORIDE 0.9% (FLUSH) 10 ML SYG IV PRN (09:03)
[2017-05-31] MEDS ORDERED: ZOLPIDEM TARTRATE 5 MG TAB PO PRN (09:03)
[2017-05-31] MEDS ORDERED: MORPHINE PCA 1 MG/ML 100 ML BAG IVPB SCH (09:30)
[2017-05-31] MEDS: IV SET AND CAP CHANGE INJ INJ SCH (09:30)
[2017-05-31] MEDS ORDERED: NEOSTIGMINE METHYLSULFATE 1 MG/ML ML IV ONE (10:00)
[2017-05-31] MEDS ORDERED: DEXAMETHASONE INJ 10 MG/ML VIAL IV ONE (10:00)
[2017-05-31] MEDS ORDERED: METOCLOPRAMIDE HCL INJ 10 MG/2 ML VIAL IV ONE (10:00)
[2017-05-31] MEDS ORDERED: ePHEDrine SULF 50 MG/ML IV ONE (10:00)
[2017-05-31] MEDS ORDERED: SODIUM CHLORIDE 0.9% 50 ML VIAL INJ ONE (10:00)
[2017-05-31] MEDS ORDERED: ATROPINE SULFATE 0.4 MG/ML 1ML VIAL IV ONE (10:00)
[2017-05-31] MEDS ORDERED: PROPOFOL 200 MG/20 ML VIAL IV ONE (10:00)
[2017-05-31] MEDS ORDERED: CYCLOBENZAPRINE HCL 10 MG TAB PO PRN (15:02)
[2017-05-31] MEDS ORDERED: cloNIDine HCL 0.1 MG TAB PO PRN (15:02)
--- NOTE | 2017-05-31 15:54 | CONS ---
SUPERVISING PHYSICIAN: STEFANI FREEMAN MD DATE OF CONSULTATION: 05/31/17 REASON FOR CONSULTATION: Medical management postoperatively. HISTORY OF PRESENT ILLNESS: Ms. Holm is an 82-year-old female who electively today had a right total knee arthroplasty. She had undergone injections to the knee to attempt to get relief and was walking with a cane as well. Due to the fact that she has had ongoing pain and it was affecting her daily activities, she chose to undergo knee surgery. She has already had a left total knee arthroplasty as well. There were no intraoperative complications reported. She was brought to the Medical/Surgical Unit postoperatively with [employer] pump. Currently, she is awake and alert and does not complain of any pain. She has been pushing her BOOSTER PU[employer] OILER button when she starts to feel any pain. She is in no severe distress. PAST MEDICAL HISTORY: 1. Hypertension. 2. Tachycardia. 3. Peptic ulcer disease. 4. Deep venous thrombosis in March of 2017 and one about 20 years ago as well. She has been taking warfarin for this and her last dose was 05/25/17. 5. Hypothyroidism. 6. Osteoarthritis. 7. Chronic back pain. 8. Macular degeneration. 9. Restless leg syndrome. 10. Depression. PAST SURGICAL HISTORY: 1. Left total knee arthroplasty. 2. Hysterectomy. 3. Cholecystectomy. 4. Appendectomy. 5. Tonsillectomy. 6. Cardiac catheterization twice and both times she did not have any severe coronary disease. 7. EGD which showed peptic ulcer disease. She was at one point taking Carafate for this, but now she takes Protonix. 8. Colonoscopy, which she says was clear. 9. Lung biopsy. 10. Hernia repair. HOME MEDICATIONS: 1. Fosamax 70 mg p.o. weekly. 2. Clonidine 0.1 mg every 6 hours p.r.n. for hypertension. 3. Flexeril 10 mg p.r.n. for muscle spasms. 4. Diclofenac topical to be applied b.i.d. 5. Furosemide 40 mg daily. 6. Gabapentin 600 mg at bedtime. 7. Imipramine 25 mg p.o. at bedtime. 8. Levothyroxine 125 mcg p.o. daily. 9. Loratadine 10 mg p.o. at bedtime. 10. Losartan 25 mg p.o. b.i.d. 11. Protonix 20 mg p.o. daily. 12. MiraLAX 17 grams p.o. daily. 13. Potassium chloride 10 mEq p.o. daily. 14. Requip 4 mg p.o. at bedtime. 15. Tramadol 50 mg every 4 hours p.r.n. for pain. 16. Venlafaxine 37.5 mg p.o. at bedtime. 17. Warfarin 7.5 mg every other day alternated with 5 mg on the alternate days. ALLERGIES: SULFA DRUGS. FAMILY HISTORY: Noncontributory to the current issues at hand. SOCIAL HISTORY: She is a nondrinker, nonsmoker, no illicit drugs. REVIEW OF SYSTEMS: Multisystem review of systems is basically negative except for the chronic pain that she has had due to the osteoarthritis in the right knee. PHYSICAL EXAMINATION: VITAL SIGNS: Blood pressure 123/78. Heart rate 99. Respiratory rate 16. Temperature 97.8. Oxygen saturation 95%. GENERAL: Ms. Holm is an 82-year-old female who is currently in no active distress currently. HEENT: Normocephalic, atraumatic. Pupils are equal and reactive. No nasal drainage. Throat with moist buccal mucosa. NECK: Supple. Midline trachea. No jugular venous distention. CHEST: Symmetrical with equal rise and fall of the chest with inspiration and expiration. Lung sounds are clear to auscultation bilaterally. CARDIOVASCULAR: Regular rate and rhythm. Normal S1, S2. ABDOMEN: Soft. Positive bowel sounds. No tenderness to palpation. GENITOURINARY: Deferred. EXTREMITIES: Lower extremities reveal a scar to the anterior aspect of the left knee and she has a brace and Fredrick wrap to the right knee at this time. Lower extremities with some ankle edema. Pulses are 2+ bilaterally. Capillary refill less than 2 seconds. NEUROLOGIC: The patient is alert and oriented. Moves all extremities. Extraocular muscles are intact. LABORATORY: She has not had any labs or x-rays today. Preoperative labs were unremarkable. ASSESSMENT: 1. Osteoarthritis of the right knee status post right total knee arthroplasty. 2. History of deep venous thrombosis on chronic Coumadin therapy. 3. Hypertension. 4. Peptic ulcer disease. 5. Hypothyroidism. 6. History of tachycardia. 7. Restless leg syndrome. 8. Mild depression. PLAN: 1. Postoperative orders placed by Dr. Garcia are in place. This will include DVT prophylaxis with 30 mg Lovenox twice daily as well as pain control. Physical therapy is also involved and will assist in recovery. 2. Regarding the patient's history of deep venous thrombosis, she is currently on DVT prophylaxis with 30 mg of Lovenox twice a day. We will discuss with Dr. Garcia regarding resuming the warfarin and whether or not therapeutic Lovenox should be used until the INR is therapeutic. 3. Hypertension is currently controlled. We will resume her home medications. 4. We will resume all her home medications regarding her other chronic illnesses as well. #[id number] [facility]
[2017-05-31] MEDS ORDERED: ceFAZolin SODIUM 2 GRAMS PREMI 50 ML IVPB ONE ×2 (15:58→19:44)
[2017-05-31] MEDS: ceFAZolin SODIUM 2 GRAMS PREMI 2 GM in PREMIX BAG 1 BAG IVPB SCH (16:04)
[2017-05-31] MEDS ORDERED: METOPROLOL SUCCINATE XL 25 MG TAB PO ONE (18:17)
[2017-05-31] MEDS: VANCOMYCIN HCL INJ 1,000 MG in SODIUM CHLORIDE 0.9% 250ML 250 ML IVPB SCH (18:22)
[2017-05-31] MEDS: LORATADINE 10 MG TAB PO SCH (21:12)
[2017-05-31] MEDS: IMIPRAMINE HCL 25 MG TAB PO SCH (21:13)
[2017-05-31] MEDS: DOCUSATE CALCIUM 240 MG CAP PO SCH (21:13)
[2017-05-31] MEDS: VENLAFAXINE HCL TAB 75 MG TAB PO SCH (21:13)
[2017-05-31] MEDS: GABAPENTIN 300 MG CAP PO SCH (21:14)
[2017-05-31] MEDS: HYDROcodone 5MG/APAP 325MG 1 EA TAB PO PRN (21:14)
[2017-05-31] MEDS: ENOXAPARIN SODIUM 30 MG/0.3 ML SYG SUBCU SCH (21:14)
[2017-05-31] MEDS ORDERED: LOSARTAN POTASSIUM 25 MG TAB ONE (21:27)
[2017-05-31] MEDS: LOSARTAN POTASSIUM 100 MG TAB PO SCH (21:29)
[2017-06-01] MEDS: ceFAZolin SODIUM 2 GRAMS PREMI 2 GM in PREMIX BAG 1 BAG IVPB SCH ×2 (00:13→08:26)
[2017-06-01] MEDS ORDERED: PANTOPRAZOLE SODIUM TAB 40 MG PO ONE (03:06)
[2017-06-01] MEDS ORDERED: SODIUM CHLORIDE 0.9% 250ML 250 ML ONE (03:06)
[2017-06-01] MEDS ORDERED: LEVOTHYROXINE SODIUM 0.025 MG TAB ONE (03:06)
[2017-06-01] MEDS ORDERED: LEVOTHYROXINE SODIUM 0.1 MG TAB ONE (03:07)
[2017-06-01] MEDS ORDERED: VANCOMYCIN HCL INJ 1,000 MG VIAL IVPB ONE (03:07)
[2017-06-01] MEDS ORDERED: PROMETHAZINE HCL INJ 25 MG/ML VIAL ONE (03:13)
[2017-06-01] MEDS ORDERED: SODIUM CHLORIDE 0.9% 50ML 50 ML ONE (03:13)
[2017-06-01] MEDS: traMADol HCL 50 MG TAB PO PRN ×2 (03:15→13:24)
[2017-06-01] MEDS: CYCLOBENZAPRINE HCL 10 MG TAB PO PRN ×2 (03:16→13:25)
[2017-06-01] MEDS: VANCOMYCIN HCL INJ 1,000 MG in SODIUM CHLORIDE 0.9% 250ML 250 ML IVPB SCH (06:23)
[2017-06-01] MEDS: PANTOPRAZOLE SODIUM TAB 40 MG PO SCH (06:23)
[2017-06-01] MEDS: LEVOTHYROXINE SODIUM 0.025 MG TAB PO SCH (06:24)
[2017-06-01] MEDS: LEVOTHYROXINE SODIUM 0.1 MG TAB PO SCH (06:24)
[2017-06-01] MEDS ORDERED: ceFAZolin SODIUM 2 GRAMS PREMI 50 ML IVPB ONE (07:53)
[2017-06-01] MEDS: HYDROcodone 5MG/APAP 325MG 1 EA TAB PO PRN (08:27)
[2017-06-01] MEDS ORDERED: NON-FORMULARY MEDICATION 1 EA MIS (Levothyroxine Sodium [Levothyroxine Sodium] 125 MCG) PO SCH (09:00)
[2017-06-01] MEDS ORDERED: POLYETHYLENE GLYCOL 3350 17 GM PCKT PO SCH (09:00)
[2017-06-01] MEDS ORDERED: LOSARTAN POTASSIUM 25 MG TAB ONE (09:36)
[2017-06-01] MEDS: LOSARTAN POTASSIUM 100 MG TAB PO SCH (09:37)
[2017-06-01] MEDS: MAGNESIUM OXIDE 400 MG TAB PO SCH (09:49)
[2017-06-01] MEDS: LOSARTAN POTASSIUM 25 MG TAB PO SCH ×2 (09:49→22:18)
[2017-06-01] MEDS: FUROSEMIDE 40 MG TAB PO SCH (09:49)
[2017-06-01] MEDS: POTASSIUM CHLORIDE 10 MEQ TAB PO SCH (09:50)
[2017-06-01] MEDS: ENOXAPARIN SODIUM 30 MG/0.3 ML SYG SUBCU SCH ×2 (09:50→22:18)
--- NOTE | 2017-06-01 10:07 | RAD ---
EXAM DESCRIPTION: Knee,Right 2 or More Views CLINICAL HISTORY: 82 years Female, TKA COMPARISON: May 19, 2017 FINDINGS: 2 views of the right knee show postoperative changes related previous right knee arthroplasty. No hardware complication is identified. Gas and fluid in the right knee joint space is probably related to recent surgery. Vascular calcifications are also noted. IMPRESSION: Postoperative changes in the right knee related to recent right knee arthroplasty without apparent surgical complication. Electronically signed by: Marc Au MD 06/01/2017 10:06 AM [facility]
--- NOTE | 2017-06-01 10:51 | OP ---
DATE OF PROCEDURE: 05/31/17 PREOPERATIVE DIAGNOSIS: 1. Right knee osteoarthritis. POSTOPERATIVE DIAGNOSIS: 1. Right knee osteoarthritis. PROCEDURE: 1. Right total knee arthroplasty. SURGEON: Tommie Garcia MD. MARKET CONSULTANT: Abraham Tate CST, SA-C. ANESTHESIA: General. COMPLICATIONS: None. FINDINGS: Severe arthritis with varus deformity. INDICATION: Ms. Holm has a history of severe knee pain with failure of conservative measures. She was on an assistive device for ambulation and was having difficulty with daily activities. Because of her failure of conservative measures, she requested operative intervention. After discussing the risks, benefits and alternatives to that, the patient has given informed consent for total knee arthroplasty. PROCEDURE: The patient was brought to the Operating Room and placed in supine position. General anesthesia was induced and the patient's leg was sterilely prepped and draped. Following prepping and draping, the distal femur was exposed and using an intramedullary guide, the distal femoral cut was made. The appropriate sized cutting block was measured, pinned into place, and the anterior, posterior, and chamfer cuts were made. The ACL was transected and the tibia was subluxed. Both the medial and lateral menisci were removed. An intramedullary guide was used to make the proximal tibial cut. The appropriate sized base plate was placed and a trial polyethylene was placed. The trial femur was placed, the knee was reduced, and the knee was taken through a range of motion. The knee was stable in anterior, posterior, varus and valgus stress. The patella tracked anatomically without evidence of subluxation or dislocation. After trialing, the trial components were removed and the bony surfaces were thoroughly irrigated with saline. Following irrigation, the surfaces were dried and the final components were cemented into place. The excess cement was removed and the remaining cement was allowed to cure. The knee was again taken through a range of motion to confirm stability. The wound was then irrigated with saline and closure was performed using PDS to approximate the arthrotomy followed by closure of the subcutaneous tissues with a combination of running and interrupted Monocryl sutures. Sterile dressing was placed. The patient was awoken from anesthesia and taken to Recovery. POSTOPERATIVE INSTRUCTIONS: The patient will be weight-bearing as tolerated on postoperative day 1. COMPONENTS: Tebla Triathlon knee, size 5 femur, size 4 tibia, 9 mm insert. #[id number] [facility]
[2017-06-01] MEDS: METOPROLOL SUCCINATE XL 50 MG TAB PO SCH (15:06)
--- NOTE | 2017-06-01 15:57 | PN ---
DATE: 06/01/17 SUPERVISING PHYSICIAN: Anirudh Sifuentes M.D. SUBJECTIVE: Ms. Holm is doing well today. Her pain is controlled. She had some tachycardia last night and I started her on Toprol XL at 25 mg. This did improve her heart rate. This morning, I have ordered Metoprolol 50 mg. I have discussed this with her because she had not wanted to take the Toprol before because it made her feel bad. I explained to her that this would not only help her blood pressure but also her heart rate, and she is in agreement. OBJECTIVE: Blood pressure 154/82, heart rate 110, respiratory rate 18, temperature 98.8 although she did spike a fever of 100.1 last night. O2 saturation is 96%. GENERAL: Ms. Holm is an 82 year-old female in no active distress. NEUROLOGIC: The patient is alert and oriented. LUNGS: Clear to auscultation bilaterally. CARDIOVASCULAR: She has an elevated heart rate which is sinus tachycardia. ABDOMEN: Soft. Positive bowel sounds. EXTREMITIES: Lower extremities with her right knee still in the Fredrick and brace. Peripheral pulses are adequate. LABORATORY: Stable H&H at 10.5 and 32.2 respectively. ASSESSMENT: 1. Osteoarthritis of the right knee status post right total knee arthroplasty postoperative day 1. 2. History of deep venous thrombosis. 3. Hypertension. 4. Tachycardia. 5. Peptic ulcer disease. 6. Hypothyroidism. 7. Restless leg syndrome. 8. Mild depression. PLAN: At this point she seems to be progressing fairly well. As stated before , I am placing her on Toprol XL at 50 mg for blood pressure and heart rate control. All other orders will stay the same. #[id number] [facility]
[2017-06-01] MEDS: LORATADINE 10 MG TAB PO SCH (22:18)
[2017-06-01] MEDS: DOCUSATE CALCIUM 240 MG CAP PO SCH (22:18)
[2017-06-01] MEDS: VENLAFAXINE HCL TAB 75 MG TAB PO SCH (22:18)
[2017-06-01] MEDS: GABAPENTIN 300 MG CAP PO SCH (22:18)
[2017-06-01] MEDS: IMIPRAMINE HCL 25 MG TAB PO SCH (22:19)
[2017-06-01] MEDS: POLYETHYLENE GLYCOL 3350 17 GM PCKT PO SCH (22:21)
[2017-06-02] MEDS: LEVOTHYROXINE SODIUM 0.025 MG TAB PO SCH (06:19)
[2017-06-02] MEDS: PANTOPRAZOLE SODIUM TAB 40 MG PO SCH (06:19)
[2017-06-02] MEDS: LEVOTHYROXINE SODIUM 0.1 MG TAB PO SCH (06:19)
[2017-06-02] MEDS: POTASSIUM CHLORIDE 10 MEQ TAB PO SCH (09:20)
[2017-06-02] MEDS: ENOXAPARIN SODIUM 30 MG/0.3 ML SYG SUBCU SCH ×2 (09:21→21:14)
[2017-06-02] MEDS: MAGNESIUM OXIDE 400 MG TAB PO SCH (09:21)
[2017-06-02] MEDS: FUROSEMIDE 40 MG TAB PO SCH (09:21)
[2017-06-02] MEDS: LOSARTAN POTASSIUM 25 MG TAB PO SCH ×2 (09:21→21:14)
[2017-06-02] MEDS: METOPROLOL SUCCINATE XL 50 MG TAB PO SCH (09:21)
[2017-06-02] MEDS: SODIUM CHLORIDE 0.9% (FLUSH) 10 ML SYG IV SCH ×2 (09:21→21:15)
--- NOTE | 2017-06-02 11:08 | PN ---
DATE: 05/31/17 POSTOPERATIVE CHECK SUBJECTIVE: Ms. Holm is doing really well and she has excellent pain control. OBJECTIVE: Afebrile. Vital signs stable. Dressing is clean, dry and intact. ASSESSMENT: Status post total knee arthroplasty. PLAN: She is going to continue with CPM today and begin weight-bearing as tolerated tomorrow. #[id number] [facility]
--- NOTE | 2017-06-02 11:10 | PN ---
DATE: 06/01/17 SUBJECTIVE: Ms. Holm is doing well and has some pain as expected at this point. OBJECTIVE: Afebrile. Vital signs stable. Dressing is clean, dry and intact. ASSESSMENT: Status post total knee arthroplasty. PLAN: She will begin weight-bearing as tolerated today. #[id number] [facility]
--- NOTE | 2017-06-02 11:11 | PN ---
DATE: 06/02/17 SUBJECTIVE: Ms. Holm is doing well today. She was up yesterday on a couple of occasions. OBJECTIVE: Afebrile. Vital signs stable. Wound is clean. There are no signs or symptoms of infection. ASSESSMENT: Status post total knee arthroplasty. PLAN: She will continue with weight-bearing as tolerated. #[id number] [facility]
[2017-06-02] MEDS: traMADol HCL 50 MG TAB PO PRN (17:49)
--- NOTE | 2017-06-02 18:56 | PN ---
DATE: 06/02/17 SUPERVISING PHYSICIAN: Anirudh Sifuentes M.D. SUBJECTIVE: The patient is sitting up in her chair in her hospital room. She gets quit sleepy but feels like her physical therapy is going well. No complaints of chest pain, nausea, vomiting or diarrhea. OBJECTIVE: VITAL SIGNS: She is afebrile, heart rate 100, blood pressure 135/76, respiratory rate 18, O2 sat is 93% on room air. RESPIRATORY: Essentially clear to auscultation bilaterally. CARDIAC: Regular rate and rhythm. GASTROINTESTINAL: Abdomen is soft, nondistended, non-tender. Bowel sounds are positive. EXTREMITIES: No cyanosis, clubbing or edema. Bilateral pedal pulses are palpable at +2. The dressing to her right knee is dry and intact. NEUROLOGIC: She is awake , alert and oriented times three. LABORATORY: There are no labs or films to report at this time. ASSESSMENT: 1. Osteoarthritis of the right knee status post right total knee arthroplasty postoperative day number [address] Tommie Garcia, orthopedic surgeon. 2. History of deep venous thrombosis. 3. Hypertension. 4. Tachycardia. 5. Peptic ulcer disease. 6. Hypothyroidism. 7. Restless leg syndrome. 8. Mild depression. PLAN: We will continue present supportive care. Toprol was added yesterday and her heart rate and blood pressure have been fairly well controlled. Will continue to monitor it. We will continue with her physical therapy for strengthening and conditioning. Orthopedic issues will be per Dr. Tommie Garcia, orthopedic surgeon. Continue to encourage good pulmonary hygiene. Discharge plan is for the patient to be discharged from Acute Care to Swing Bed most likely this weekend. Dr. Sifuentes is the collaborating physician available for consultation. #[id number] [facility]
[2017-06-02] MEDS: IMIPRAMINE HCL 25 MG TAB PO SCH (21:13)
[2017-06-02] MEDS: GABAPENTIN 300 MG CAP PO SCH (21:14)
[2017-06-02] MEDS: VENLAFAXINE HCL TAB 75 MG TAB PO SCH (21:14)
[2017-06-02] MEDS: DOCUSATE CALCIUM 240 MG CAP PO SCH (21:14)
[2017-06-02] MEDS: LORATADINE 10 MG TAB PO SCH (21:14)
[2017-06-02] MEDS: POLYETHYLENE GLYCOL 3350 17 GM PCKT PO SCH (21:14)
[2017-06-02] MEDS: HYDROcodone 5MG/APAP 325MG 1 EA TAB PO PRN (21:29)
[2017-06-03] MEDS: HYDROcodone 5MG/APAP 325MG 1 EA TAB PO PRN ×2 (04:36→08:24)
[2017-06-03] MEDS: LEVOTHYROXINE SODIUM 0.025 MG TAB PO SCH (06:09)
[2017-06-03] MEDS: LEVOTHYROXINE SODIUM 0.1 MG TAB PO SCH (06:09)
[2017-06-03] MEDS: PANTOPRAZOLE SODIUM TAB 40 MG PO SCH (06:09)
[2017-06-03] MEDS: LOSARTAN POTASSIUM 25 MG TAB PO SCH (08:12)
[2017-06-03] MEDS: POTASSIUM CHLORIDE 10 MEQ TAB PO SCH (08:12)
[2017-06-03] MEDS: METOPROLOL SUCCINATE XL 50 MG TAB PO SCH (08:12)
[2017-06-03] MEDS: SODIUM CHLORIDE 0.9% (FLUSH) 10 ML SYG IV SCH (08:12)
[2017-06-03] MEDS: MAGNESIUM OXIDE 400 MG TAB PO SCH (08:12)
[2017-06-03] MEDS: FUROSEMIDE 40 MG TAB PO SCH (08:12)
[2017-06-03] MEDS: IV SET AND CAP CHANGE INJ INJ SCH (08:14)
[2017-06-03] MEDS: CYCLOBENZAPRINE HCL 10 MG TAB PO PRN (09:27)
[2017-06-03] MEDS: ENOXAPARIN SODIUM 30 MG/0.3 ML SYG SUBCU SCH (09:52)
[2017-06-03 10:10] VITALS: BP 133/77; TEMP 97.5; O2SAT 92
--- NOTE | 2017-06-03 10:31 | DS ---
SUPERVISING PHYSICIAN: Anirudh Sifuentes MD DISCHARGE DIAGNOSIS: 1. Osteoarthritis of the right knee status post right total knee arthroplasty postoperative day 3, performed by Dr. Tommie Garcia, orthopedic surgeon. 2. History of deep venous thrombosis. 3. Hypertension. 4. Tachycardia. 5. Peptic ulcer disease. 6. Hypothyroidism. 7. Restless leg syndrome. 8. Mild depression. HISTORY OF PRESENT ILLNESS: This is an 82-year-old female who had elective right total knee arthroplasty on 05/31/17. She had undergone injections to the knee to attempt to get relief. Due to the ongoing pain and that it was affecting her daily activities, she chose to undergo knee surgery. She has already had a left total knee arthroplasty as well. There were no intraoperative complications reported. She was brought to the Medical/Surgical Unit postoperatively with [employer] pump. HOSPITAL COURSE: She continued her physical therapy for strengthening and conditioning without any problems. She did have an issue with some tachycardia and was initially started on a low dose of Toprol and that was increased to 50 mg daily. That has controlled her heart rate. She will be discharged from the Acute Care setting today and admitted to Swing Bed for further strengthening and conditioning. DISCHARGE PLAN: The patient will be discharged from the Acute Care setting today and admitted to Swing Bed for physical therapy, strengthening and conditioning. We will continue her previous home medications. Her Coumadin will be held for 8 additional days of Xarelto. She will also continue with some Colace due to increased incidence of constipation on pain medications. Hopefully, she can be discharged in a few days after she continues her strengthening and conditioning with physical therapy. She will have followup appointment after discharge from Swing Bed with Dr. Garcia as well as Dr. Daley. DISCHARGE MEDICATIONS: 1. Furosemide. 2. Levothyroxine. 3. Requip. 4. Losartan. 5. Loratadine. 6. MiraLAX. 7. Imipramine. 8. Potassium chloride. 9. Tramadol. 10. Pantoprazole. 11. Gabapentin. 12. Clonidine. 13. Venlafaxine. 14. Cyclobenzaprine. 15. Diclofenac. 16. Alendronate. 17. Warfarin. Dr. Sifuentes is the collaborating physician and available for consultation. #[id number] [facility]
[2017-06-03] MEDS ORDERED: MAGNESIUM HYDROXIDE 30 ML UD PO ONE (21:00)
[2017-06-03] MEDS ORDERED: BISACODYL SUPPOSITORY 10 MG PR ONE (21:00)
[2017-06-07] MEDS ORDERED: ALENDRONATE SODIUM TAB 70 MG TAB PO SCH (09:00)
== END 2017-06-03 10:11 | disposition swing bed (61) | DRG 470 ==
LOC: AMB 05:42 → MS 09:07 → UNDOADMIN 10:53 → MS 10:53 → UNDOADMIN 06-03 10:00 → MS 06-03 10:00 → UNDODISIN 06-03 10:11
PROVIDERS: ADMIT Orthopaedic Surgery; ATTEND Nurse Practitioner Acute Care
PROC: 0SRC0J9 Replacement of Right Knee Joint with Synthetic Substitute, Cemented, Open Approach (ICD-10-PCS; principal; 2017-05-31 07:10)
DX: M17.11 Unilateral primary osteoarthritis, right knee (principal); I10 Essential (primary) hypertension; E03.9 Hypothyroidism, unspecified; G25.81 Restless legs syndrome; F32.9 Major depressive disorder, single episode, unspecified; K27.9 Peptic ulcer, site unspecified, unspecified as acute or chronic, without hemorrhage or perforation; R00.0 Tachycardia, unspecified; G89.29 Other chronic pain; M54.9 Dorsalgia, unspecified; H35.30 Unspecified macular degeneration; Z96.652 Presence of left artificial knee joint; Z66 Do not resuscitate; Z88.2 Allergy status to sulfonamides; Z88.8 Allergy status to other drugs, medicaments and biological substances; Z86.718 Personal history of other venous thrombosis and embolism; Z79.01 Long term (current) use of anticoagulants; Z79.899 Other long term (current) drug therapy; Z79.83 Long term (current) use of bisphosphonates

== ENCOUNTER 2017-06-03 10:15 | Inpatient (IN) | payer MEDICARE, OTHER ==
[2017-06-03] MEDS ORDERED: LEVALBUTEROL NEBS 1.25 MG/3 ML VIAL INH PRN (11:34)
[2017-06-03] MEDS ORDERED: ACETAMINOPHEN 500 MG TAB PO PRN (11:34)
[2017-06-03] MEDS ORDERED: MAGNESIUM HYDROXIDE 30 ML UD PO PRN (11:34)
[2017-06-03] MEDS ORDERED: SODIUM PHOS/BIPHOS ENEMA ADULT 133 ML BTTL PR PRN (11:34)
[2017-06-03] MEDS: HYDROcodone 5MG/APAP 325MG 1 EA TAB PO PRN ×2 (14:38→19:34)
--- NOTE | 2017-06-03 18:13 | HP ---
SUPERVISING PHYSICIAN: Anirudh Sifuentes M.D. CHIEF COMPLAINT: Postoperative right total knee arthroplasty. HISTORY OF PRESENT ILLNESS: This is an 82 year-old female patient who was admitted on 05/31/17 for an elective right total knee arthroplasty. She had previously undergone injections to the knee to get relief. She had to walk with a cane and due to her ongoing pain and it affecting her daily activities, she elected to have a right total knee arthroplasty performed per Dr. Tommie Garcia, orthopedic surgeon. She had previously had left total knee arthroplasty. There were no intraoperative complications that were reported. Postoperatively she progressed slowly without any major complications other than she did have to have some Metoprolol added to her medication regimen due to elevated heart rate as well as her blood pressure being up. She progressed well with her physical therapy, strengthening and conditioning, and she was discharged from the Acute Care setting today. She is being readmitted to the hospital for Swing Bed for strengthening and conditioning for her right total knee arthroplasty. PAST MEDICAL HISTORY: 1. Hypertension. 2. Tachycardia. 3. Peptic ulcer disease. 4. Deep venous thrombosis in March of 2017 and previously about 20 years ago. She has been on Warfarin prior to her admission to the hospital. 5. Hypothyroidism. 6. Osteoarthritis. 7. Chronic back pain. 8. Macular degeneration. 9. Restless leg syndrome. 10. Depression. PAST SURGICAL HISTORY: 1. Left total knee arthroplasty. 2. Right total knee arthroplasty. 3. Hysterectomy. 4. Cholecystectomy. 5. Appendectomy. 6. Tonsillectomy. 7. Cardiac catheterization times 2. 8. Esophagogastroduodenoscopy showing peptic ulcer disease. 9. Colonoscopy. 10. Lung biopsy. 11. Hernia repair. HOME MEDICATIONS: 1. Fosamax. 2. Clonidine. 3. Flexeril. 4. Diclofenac. 5. Furosemide. 6. Gabapentin. 7. Imipramine. 8. Levothyroxine. 9. Loratadine. 10. Losartan. 11. Protonix. 12. MiraLAX. 13. Potassium chloride. 14. Requip. 15. Tramadol. 16. Venlafaxine. 17. Warfarin. 18. Metoprolol. ALLERGIES: SULFA DRUGS. FAMILY HISTORY: Noncontributory. SOCIAL HISTORY: She denies any tobacco, ETOH or illicit drug use. REVIEW OF SYSTEMS: Multisystem review of systems is basically negative, except for chronic pain that she had due to the osteoarthritis of the right knee. PHYSICAL EXAMINATION: VITAL SIGNS: She his afebrile, heart rate 93, blood pressure 133/77, respiratory rate 17, O2 sat is 92% on 2 liters nasal cannula. GENERAL: This is an 82 year-old female patient who is lying in her hospital bed. She is in no acute distress. HEENT: Normocephalic and atraumatic. Pupils are equal and reactive. Oropharynx is clear. Oral mucous membranes are moist. NECK: Supple without mass. There is no discernible jugular venous distention. RESPIRATORY: Essentially clear to auscultation bilaterally. CHEST: There is equal rise and fall of the chest with inspiration and expiration. CARDIOVASCULAR: Regular rate and rhythm. GASTROINTESTINAL: Abdomen is soft, nondistended, non-tender. Bowel sounds are positive. EXTREMITIES: No cyanosis, clubbing or edema. There is a dressing to her right knee that is dry and intact. Her bilateral pedal pulses are +2 bilaterally. NEUROLOGIC: She is awake, alert and oriented times three. LABORATORY: There are no labs or films to review at this time. ASSESSMENT: 1. Osteoarthritis of the right knee status post right total knee arthroplasty , postoperative day number 3. Surgical intervention performed by Dr. Tommie Garcia, orthopedic surgeon. 2. History of deep venous thrombosis on chronic Coumadin therapy. 3. Hypertension. 4. Peptic ulcer disease. 5. Hypothyroidism. 6. History of tachycardia. 7. Restless leg syndrome. 8. Mild depression. PLAN: We will admit the patient to Swing Bed. She will continue with her physical therapy for strengthening and conditioning. I will continue her home medications. She has 8 additional days of Xarelto. After completion of her Xarelto, she will need to resume her Coumadin therapy. She will see Dr. Daley for her followup. I will also continue her Metoprolol and that will be a new home medication. We will continue to monitor her closely and follow as needed. Dr. Sifuentes is the collaborating physician available for consultation. [facility][id number] [facility]
[2017-06-03] MEDS ORDERED: LORATADINE 10 MG TAB PO ONE (20:28)
[2017-06-03] MEDS ORDERED: VENLAFAXINE HCL TAB 75 MG TAB ONE (20:29)
[2017-06-03] MEDS ORDERED: GABAPENTIN 300 MG CAP ONE (20:29)
[2017-06-03] MEDS ORDERED: LOSARTAN POTASSIUM 25 MG TAB ONE (20:29)
[2017-06-03] MEDS ORDERED: VENLAFAXINE HCL 37.5 MG PO SCH (21:00)
[2017-06-03] MEDS ORDERED: NON-FORMULARY MEDICATION 1 EA MIS (Loratadine [Claritin] 10 MG) PO SCH (21:00)
[2017-06-03] MEDS ORDERED: ROPINIROLE HYDROCHLORIDE 4 MG PO SCH (21:00)
[2017-06-03] MEDS: IMIPRAMINE HCL 25 MG TAB PO SCH (21:10)
[2017-06-03] MEDS: DOCUSATE CALCIUM 240 MG CAP PO SCH (21:10)
[2017-06-03] MEDS: CYCLOBENZAPRINE HCL 10 MG TAB PO PRN (21:12)
[2017-06-03] MEDS: LOSARTAN POTASSIUM 100 MG TAB PO SCH (21:13)
[2017-06-03] MEDS: GABAPENTIN 100 MG CAP PO SCH (21:13)
[2017-06-04] MEDS: HYDROcodone 5MG/APAP 325MG 1 EA TAB PO PRN ×4 (05:47→20:51)
[2017-06-04] MEDS: PANTOPRAZOLE SODIUM TAB 40 MG PO SCH (06:34)
[2017-06-04] MEDS: LEVOTHYROXINE SODIUM 0.025 MG TAB PO SCH (06:34)
[2017-06-04] MEDS: LEVOTHYROXINE SODIUM 0.1 MG TAB PO SCH (06:34)
[2017-06-04] MEDS ORDERED: LOSARTAN POTASSIUM 25 MG TAB ONE (08:50)
[2017-06-04] MEDS ORDERED: NON-FORMULARY MEDICATION 1 EA MIS (Levothyroxine Sodium [Levothyroxine Sodium] 125 MCG) PO SCH (09:00)
[2017-06-04] MEDS: RIVAROXABAN 10 MG TAB PO SCH (09:05)
[2017-06-04] MEDS: POTASSIUM CHLORIDE 10 MEQ TAB PO SCH (09:07)
[2017-06-04] MEDS: METOPROLOL SUCCINATE XL 50 MG TAB PO SCH (09:07)
[2017-06-04] MEDS: FUROSEMIDE 40 MG TAB PO SCH (09:07)
[2017-06-04] MEDS: DOCUSATE SODIUM 100 MG CAP PO SCH (09:08)
[2017-06-04] MEDS: LOSARTAN POTASSIUM 100 MG TAB PO SCH (11:42)
--- NOTE | 2017-06-04 14:15 | PCM.CORE ---
Physician DVT/VTE - Prophylaxis Currently: Patient already on anticoagulation therapy - xarelto - Nurse DVT Assessment & Total Each Risk Factor Represents 5 Points: Elective Arthtroplasty Each Risk Factor Represents 3 Points: Age over 75 years Each Risk Factor is 1 Point: Obesity (BMI >25) DVT Assessment Score: 9 - 5 or more Very High Risk Treatments: Early Ambulation *, Sequential Compression Device
[2017-06-04] MEDS: CYCLOBENZAPRINE HCL 10 MG TAB PO PRN (14:45)
[2017-06-04] MEDS: LOSARTAN POTASSIUM 25 MG TAB PO SCH (20:49)
[2017-06-04] MEDS: LORATADINE 10 MG TAB PO SCH (20:50)
[2017-06-04] MEDS: VENLAFAXINE HCL TAB 75 MG TAB PO SCH (20:50)
[2017-06-04] MEDS: IMIPRAMINE HCL 25 MG TAB PO SCH (20:51)
[2017-06-04] MEDS: DOCUSATE CALCIUM 240 MG CAP PO SCH (20:52)
[2017-06-04] MEDS: GABAPENTIN 100 MG CAP PO SCH (20:53)
[2017-06-04] MEDS: POLYETHYLENE GLYCOL 3350 17 GM PCKT PO SCH (20:54)
[2017-06-04] MEDS ORDERED: LOSARTAN POTASSIUM 25 MG TAB PO SCH (21:00)
[2017-06-04] MEDS ORDERED: VENLAFAXINE HCL TAB 75 MG TAB PO SCH (21:00)
[2017-06-05] MEDS: PANTOPRAZOLE SODIUM TAB 40 MG PO SCH (06:36)
[2017-06-05] MEDS: LEVOTHYROXINE SODIUM 0.1 MG TAB PO SCH (06:36)
[2017-06-05] MEDS: LEVOTHYROXINE SODIUM 0.025 MG TAB PO SCH (06:36)
[2017-06-05] MEDS: traMADol HCL 50 MG TAB PO PRN ×2 (06:37→21:52)
[2017-06-05] MEDS: POTASSIUM CHLORIDE 10 MEQ TAB PO SCH (07:39)
[2017-06-05] MEDS: HYDROcodone 5MG/APAP 325MG 1 EA TAB PO PRN ×3 (08:47→19:26)
[2017-06-05] MEDS: RIVAROXABAN 10 MG TAB PO SCH (09:15)
[2017-06-05] MEDS: FUROSEMIDE 40 MG TAB PO SCH (09:15)
[2017-06-05] MEDS: METOPROLOL SUCCINATE XL 50 MG TAB PO SCH (09:15)
[2017-06-05] MEDS: LOSARTAN POTASSIUM 25 MG TAB PO SCH ×2 (09:16→20:31)
[2017-06-05] MEDS: DOCUSATE SODIUM 100 MG CAP PO SCH (10:02)
[2017-06-05] MEDS: CYCLOBENZAPRINE HCL 10 MG TAB PO PRN (14:58)
[2017-06-05] MEDS: GABAPENTIN 100 MG CAP PO SCH (20:31)
[2017-06-05] MEDS: POLYETHYLENE GLYCOL 3350 17 GM PCKT PO SCH (20:31)
[2017-06-05] MEDS: LORATADINE 10 MG TAB PO SCH (20:31)
[2017-06-05] MEDS: VENLAFAXINE HCL TAB 75 MG TAB PO SCH (20:32)
[2017-06-05] MEDS: IMIPRAMINE HCL 25 MG TAB PO SCH (20:33)
[2017-06-05] MEDS: DOCUSATE CALCIUM 240 MG CAP PO SCH (20:33)
--- NOTE | 2017-06-05 21:47 | PN ---
DATE: 06/05/17 SUPERVISING PHYSICIAN: Jordan Zhao M.D. SUBJECTIVE: The patient is doing well with her physical therapy. She has had good pain control. She has had no fevers. The only complaint that she has had at this point is some swelling in her right lower extremity. I explained to her this is more likely related to edema from postsurgical healing and will resolved. She does have a compression stocking in place and remains on Lovenox. The patient has been without any chest pains or shortness of breath. OBJECTIVE: VITAL SIGNS: She remains afebrile, temperature 98.2, pulse 94, blood pressure 140/79, respirations 20, satting 96% on room air. Weight is 75.2 kg. CHEST: Clear to auscultation. HEART: Regular rate and rhythm. ABDOMEN: Soft, non-tender. Positive bowel sounds. EXTREMITIES: Right knee has an island dressing in place which is clean and dry. There is minimal swelling. There is some swelling nonpitting to the distal portion of the right leg. Pulses distally are strong with capillary refill brisk. NEUROLOGIC: She is alert and oriented times three. LABORATORY: PT is pending in the morning. ASSESSMENT: 1. Osteoarthritis of the right knee status post right total knee arthroplasty , postoperative day number 5. Surgical intervention performed by Dr. Tommie Garcia, orthopedic surgeon. 2. History of deep venous thrombosis on chronic Coumadin prior to surgery currently on Xarelto as per orthopedic protocol requiring bridging back to Coumadin prior to discharge. 3. Hypertension, stable. 4. Peptic ulcer disease. 5. Hypothyroidism on supplementation. 6. History of tachycardia. 7. Restless leg syndrome. 8. Mild depression. PLAN: Will continue to follow the patient as she progresses through her physical therapy. Will anticipate discharge at the discretion of Physical Therapy and Orthopedic services. In regards to her DVT treatment and Coumadin, I will discuss with Dr. Daley possibly reinitiating Coumadin tomorrow to ensure that she is therapeutic prior to discharge and more likely will need to start her back on Lovenox 1 mg per kg while she is transitioning back to Warfarin after discontinuing the Xarelto. Again, I will defer that further decision to Dr. Daley who will be managing her chronically as an outpatient. Until discharge, will continue to monitor the patient closely and treat appropriately. #[id number] [facility]
[2017-06-06] MEDS: HYDROcodone 5MG/APAP 325MG 1 EA TAB PO PRN ×5 (03:03→21:19)
[2017-06-06] MEDS: CYCLOBENZAPRINE HCL 10 MG TAB PO PRN ×3 (04:15→21:20)
[2017-06-06] MEDS: LEVOTHYROXINE SODIUM 0.1 MG TAB PO SCH (06:32)
[2017-06-06] MEDS: LEVOTHYROXINE SODIUM 0.025 MG TAB PO SCH (06:32)
[2017-06-06] MEDS: PANTOPRAZOLE SODIUM TAB 40 MG PO SCH (06:32)
[2017-06-06] MEDS: POTASSIUM CHLORIDE 10 MEQ TAB PO SCH (08:02)
[2017-06-06] MEDS: DOCUSATE SODIUM 100 MG CAP PO SCH (08:35)
[2017-06-06] MEDS: FUROSEMIDE 40 MG TAB PO SCH (08:35)
[2017-06-06] MEDS: RIVAROXABAN 10 MG TAB PO SCH (08:35)
[2017-06-06] MEDS: LOSARTAN POTASSIUM 25 MG TAB PO SCH ×2 (08:35→21:18)
[2017-06-06] MEDS: METOPROLOL SUCCINATE XL 50 MG TAB PO SCH (08:36)
[2017-06-06] MEDS ORDERED: ENOXAPARIN SODIUM 80 MG/0.8 ML SYG SUBCU SCH (11:00)
[2017-06-06] MEDS: LORATADINE 10 MG TAB PO SCH (21:17)
[2017-06-06] MEDS: VENLAFAXINE HCL TAB 75 MG TAB PO SCH (21:18)
[2017-06-06] MEDS: POLYETHYLENE GLYCOL 3350 17 GM PCKT PO SCH (21:18)
[2017-06-06] MEDS: DOCUSATE CALCIUM 240 MG CAP PO SCH (21:18)
[2017-06-06] MEDS: GABAPENTIN 100 MG CAP PO SCH (21:18)
[2017-06-06] MEDS: IMIPRAMINE HCL 25 MG TAB PO SCH (21:19)
[2017-06-07] MEDS: LEVOTHYROXINE SODIUM 0.025 MG TAB PO SCH (06:23)
[2017-06-07] MEDS: LEVOTHYROXINE SODIUM 0.1 MG TAB PO SCH (06:24)
[2017-06-07] MEDS: PANTOPRAZOLE SODIUM TAB 40 MG PO SCH (06:30)
[2017-06-07] MEDS ORDERED: WARFARIN SODIUM 5 MG TAB ONE (07:28)
[2017-06-07] MEDS: POTASSIUM CHLORIDE 10 MEQ TAB PO SCH (07:46)
[2017-06-07] MEDS: FUROSEMIDE 40 MG TAB PO SCH (08:46)
[2017-06-07] MEDS: METOPROLOL SUCCINATE XL 50 MG TAB PO SCH (08:46)
[2017-06-07] MEDS: DOCUSATE SODIUM 100 MG CAP PO SCH (08:46)
[2017-06-07] MEDS: ENOXAPARIN SODIUM 80 MG/0.8 ML SYG SUBCU SCH ×2 (08:47→21:00)
[2017-06-07] MEDS: LOSARTAN POTASSIUM 25 MG TAB PO SCH ×2 (08:47→20:59)
[2017-06-07] MEDS: HYDROcodone 5MG/APAP 325MG 1 EA TAB PO PRN ×3 (09:54→21:00)
[2017-06-07] MEDS: CYCLOBENZAPRINE HCL 10 MG TAB PO PRN ×2 (11:01→21:01)
[2017-06-07] MEDS: WARFARIN SODIUM 5 MG TAB PO SCH (13:03)
[2017-06-07] MEDS ORDERED: HYDROcodone 5MG/APAP 325MG 1 EA TAB PO ONE (14:11)
[2017-06-07] MEDS ORDERED: HYDROcodone/IBUPROFEN 7.5/200 1 EA TAB PO ONE (18:04)
[2017-06-07] MEDS: VENLAFAXINE HCL TAB 75 MG TAB PO SCH (20:59)
[2017-06-07] MEDS: POLYETHYLENE GLYCOL 3350 17 GM PCKT PO SCH (20:59)
[2017-06-07] MEDS: GABAPENTIN 100 MG CAP PO SCH (20:59)
[2017-06-07] MEDS: LORATADINE 10 MG TAB PO SCH (20:59)
[2017-06-07] MEDS: DOCUSATE CALCIUM 240 MG CAP PO SCH (21:00)
[2017-06-07] MEDS: IMIPRAMINE HCL 25 MG TAB PO SCH (21:00)
[2017-06-08] MEDS: LEVOTHYROXINE SODIUM 0.1 MG TAB PO SCH (06:26)
[2017-06-08] MEDS: LEVOTHYROXINE SODIUM 0.025 MG TAB PO SCH (06:26)
[2017-06-08] MEDS: PANTOPRAZOLE SODIUM TAB 40 MG PO SCH (06:29)
[2017-06-08] MEDS: HYDROcodone 10MG/APAP 325MG 1 EA TAB PO PRN ×3 (08:27→17:18)
[2017-06-08] MEDS: ENOXAPARIN SODIUM 80 MG/0.8 ML SYG SUBCU SCH ×2 (08:29→20:37)
[2017-06-08] MEDS: METOPROLOL SUCCINATE XL 50 MG TAB PO SCH (08:29)
[2017-06-08] MEDS: LOSARTAN POTASSIUM 25 MG TAB PO SCH ×2 (08:29→20:37)
[2017-06-08] MEDS: POTASSIUM CHLORIDE 10 MEQ TAB PO SCH (08:30)
[2017-06-08] MEDS: DOCUSATE SODIUM 100 MG CAP PO SCH (08:30)
[2017-06-08] MEDS: FUROSEMIDE 40 MG TAB PO SCH (08:30)
[2017-06-08] MEDS: CYCLOBENZAPRINE HCL 10 MG TAB PO PRN ×2 (08:32→20:35)
[2017-06-08] MEDS: WARFARIN SODIUM 5 MG TAB PO SCH (13:00)
[2017-06-08] MEDS: traMADol HCL 50 MG TAB PO PRN (20:34)
[2017-06-08] MEDS: DOCUSATE CALCIUM 240 MG CAP PO SCH (20:36)
[2017-06-08] MEDS: IMIPRAMINE HCL 25 MG TAB PO SCH (20:36)
[2017-06-08] MEDS: VENLAFAXINE HCL TAB 75 MG TAB PO SCH (20:36)
[2017-06-08] MEDS: LORATADINE 10 MG TAB PO SCH (20:36)
[2017-06-08] MEDS: GABAPENTIN 100 MG CAP PO SCH (20:36)
[2017-06-08] MEDS: POLYETHYLENE GLYCOL 3350 17 GM PCKT PO SCH (20:36)
[2017-06-08] MEDS ORDERED: CALCIUM CARBONATE (ANTACID) 500 MG CHEWABLE TAB PO PRN (20:40)
[2017-06-09] MEDS: HYDROcodone 10MG/APAP 325MG 1 EA TAB PO PRN ×3 (03:25→13:18)
[2017-06-09] MEDS: PANTOPRAZOLE SODIUM TAB 40 MG PO SCH (06:13)
[2017-06-09] MEDS: LEVOTHYROXINE SODIUM 0.025 MG TAB PO SCH (06:13)
[2017-06-09] MEDS: LEVOTHYROXINE SODIUM 0.1 MG TAB PO SCH (06:13)
[2017-06-09] MEDS: POTASSIUM CHLORIDE 10 MEQ TAB PO SCH (07:56)
[2017-06-09] MEDS ORDERED: ONDANSETRON 4 MG TAB PO PRN (09:20)
[2017-06-09] MEDS: FUROSEMIDE 40 MG TAB PO SCH (10:00)
[2017-06-09] MEDS: ENOXAPARIN SODIUM 80 MG/0.8 ML SYG SUBCU SCH (10:00)
[2017-06-09] MEDS: LOSARTAN POTASSIUM 25 MG TAB PO SCH (10:00)
[2017-06-09] MEDS: METOPROLOL SUCCINATE XL 50 MG TAB PO SCH (10:00)
[2017-06-09] MEDS ORDERED: WARFARIN SODIUM 5 MG TAB ONE (10:01)
[2017-06-09] MEDS ORDERED: WARFARIN SODIUM 2.5 MG TAB ONE (10:02)
[2017-06-09] MEDS: DOCUSATE SODIUM 100 MG CAP PO SCH (10:04)
[2017-06-09 10:59] VITALS: BP 124/63; TEMP 98.3; O2SAT 96
[2017-06-09] MEDS ORDERED: SUCRALFATE 1 GM/10 ML 1 GM UD ONE (11:00)
[2017-06-09] MEDS: CYCLOBENZAPRINE HCL 10 MG TAB PO PRN (11:01)
[2017-06-09] MEDS ORDERED: SUCRALFATE 1 GM/10 ML 1 GM UD PO SCH (11:30)
[2017-06-09] MEDS ORDERED: SUCRALFATE 1 GM TAB PO SCH ×2 (11:30)
[2017-06-09] MEDS ORDERED: WARFARIN SODIUM 5 MG, WARFARIN SODIUM 2.5 MG PO SCH ×2 (12:00)
--- NOTE | 2017-06-09 16:28 | DS ---
SUPERVISING PHYSICIAN: Jordan Zhao M.D. DISCHARGE DIAGNOSIS: 1. Osteoarthritis of the right knee status post right total knee arthroplasty , postoperative day #9. Surgical intervention performed by Dr. Tommie Garcia, orthopedic surgeon. 2. History of deep venous thrombosis on chronic Coumadin prior to surgery. She took Xarelto postoperatively and now is bridging back to Coumadin, and is on Lovenox at discharge. She presently has a subtherapeutic INR. 3. Hypertension. 4. Peptic ulcer disease. 5. Hypothyroidism. 6. History of tachycardia. 7. Restless leg syndrome. 8. Mild depression. HISTORY OF PRESENT ILLNESS: This is an 82 year-old female patient who originally came into the hospital on 05/31/17 for an elective right total knee arthroplasty. She had previously undergone injections to the knee to get relief. She has had to walk with a cane. Due to her ongoing pain and it affecting her daily activities, she elected to have a right total knee arthroplasty performed by Dr. Tommie Garcia, orthopedic surgeon. She has previously had a left total knee arthroplasty. She had no intraoperative complications. HOSPITAL COURSE: She progressed postoperatively through her physical therapy conditioning without any issues, except she did have some Metoprolol added to her medication regimen. She was discharged from the Acute Care setting to Swing Bed admission for strengthening and conditioning of her right knee. She had had a DVT in March of 2017 and then another DVT approximately 20 years ago. Prior to her surgery, she had been on Warfarin and she has been on Lovenox at 1 mg per kg b.i.d. for several days. She started her Coumadin therapy yesterday. She has received 2 doses of Coumadin 5 mg in the last 2 days. Today, her INR is 1.3. She received 7.5 mg today. She will be discharged home. DISCHARGE PLAN: The patient will be discharged home and continued with [facility] and physical therapy. She will take 7.5 mg of Coumadin tomorrow. [facility] will check her PT and INR on Tuesday morning. They are to call in to me, Rupali Reyes, with the results. I have ordered Lovenox to be continued until her INR is therapeutic. She is to receive 75 mg b.i.d. until her INR is therapeutic. She is to increase activity as per Physical Therapy. She has a followup appointment with Dr. Garcia on at 8:45 AM and she has a followup with her primary care physician, Dr. Aleksander Daley on 06/16/17 at 9:00 AM. At that time she is to have a PT and INR drawn. If she has any problems she is to return to the hospital or call Dr. Tommie Garcia 's office or Dr. Rui Daley's office. DISCHARGE MEDICATIONS: 1. Furosemide. 2. Levothyroxine. 3. Requip. 4. Loratadine. 5. MiraLAX. 6. Imipramine. 7. Potassium chloride. 8. Tramadol, 9. Pantoprazole. 10. Gabapentin. 11. Clonidine. 12. Venlafaxine. 13. Cyclobenzaprine. 14. Diclofenac topical. 15. Fosamax. 16. Warfarin. 17. Docusate sodium. 18. Hydrocodone. 19. Metoprolol succinate. 20. Losartan. 21. Zofran. 22. Carafate. Dr. Zhao is the collaborating physician available for consultation. #[id number] [facility]
== END 2017-06-09 14:40 | disposition home health service (06) | DRG 561 ==
LOC: MS 10:15
PROVIDERS: ADMIT Nurse Practitioner Acute Care; ATTEND Nurse Practitioner Acute Care
DX: Z47.1 Aftercare following joint replacement surgery (principal); M17.11 Unilateral primary osteoarthritis, right knee; R00.0 Tachycardia, unspecified; I10 Essential (primary) hypertension; E03.9 Hypothyroidism, unspecified; G25.81 Restless legs syndrome; F32.9 Major depressive disorder, single episode, unspecified; K27.9 Peptic ulcer, site unspecified, unspecified as acute or chronic, without hemorrhage or perforation; G89.29 Other chronic pain; M54.9 Dorsalgia, unspecified; H35.30 Unspecified macular degeneration; Z96.653 Presence of artificial knee joint, bilateral; Z66 Do not resuscitate; Z86.718 Personal history of other venous thrombosis and embolism; Z79.01 Long term (current) use of anticoagulants; Z79.899 Other long term (current) drug therapy; Z88.2 Allergy status to sulfonamides; Z79.83 Long term (current) use of bisphosphonates

== ENCOUNTER → 2017-06-11 | Outpatient (CLI) | payer MEDICARE, OTHER | LOC: GRHH 11:00 | PROVIDERS: ATTEND Nurse Practitioner Acute Care | DX: Z51.81 Encounter for therapeutic drug level monitoring (principal); Z79.01 Long term (current) use of anticoagulants ==

== ENCOUNTER → 2017-08-11 | Outpatient (CLI) | payer MEDICARE, OTHER | LOC: GMAB 14:26 | PROVIDERS: ATTEND Family Medicine | DX: I80.201 Phlebitis and thrombophlebitis of unspecified deep vessels of right lower extremity (principal); D50.9 Iron deficiency anemia, unspecified ==

== ENCOUNTER → 2017-09-22 | Outpatient (CLI) | payer MEDICARE, OTHER | LOC: GMAB 12:47 | PROVIDERS: ATTEND Family Medicine | DX: E03.9 Hypothyroidism, unspecified (principal) ==

== ENCOUNTER 2017-12-24 11:06 | Emergency (ER) | payer MEDICARE, OTHER ==
[2017-12-24 11:26] VITALS: TEMP 98.7; O2SAT 98
--- NOTE | 2017-12-24 12:18 | ED.PDOC ---
History of Present Illness - General Chief Complaint: Trauma Stated Complaint: fall Time Seen by Provider: 12/24/17 11:54 Source: patient Exam Limitations: no limitations - History of Present Illness Initial Comments: Kelton Holm 82 y/o female stated she tripped on elevated concrete at home then fall landing on her left upper extremity and upper lip ;had bruising,dull pain, swelling of her upper lips and right forearm.denies head neck injuries or hip pains able to get out of exam table stand up without assistance or falling.No dizziness,remembers incident stated was behind her at time of incident. Occurred: just prior to arrival Pain - Upper Extremity: moderate: Forearm, right, Wrist, right Method of Injury: fell Improving Factors: rest Worsening Factors: movement Associated Symptoms: see hpi Allergies/Adverse Reactions: Allergies Sulfa Drugs Allergy (Verified 12/24/17 11:26) Unknown Home Medications: Ambulatory Orders Furosemide [Lasix] 40 mg PO DAILY 02/20/14 Levothyroxine Sodium 125 mcg PO DAILY 02/20/14 Ropinirole Hydrochloride [Requip] 4 mg PO BEDTIME 02/20/14 Gabapentin 600 mg PO BEDTIME 04/04/17 Imipramine HCl 25 mg PO BEDTIME 04/04/17 Loratadine [Claritin] 10 mg PO BEDTIME 04/04/17 Pantoprazole Tablet [Protonix] 40 mg PO ACBK 04/04/17 Polyethylene Glycol 3350 [Miralax] 17 gm PO DAILY 04/04/17 Potassium Chloride [Potassium Chloride ER] 10 meq PO DAILY 04/04/17 Tramadol HCl 50 mg PO Q4H PRN 04/04/17 Venlafaxine HCl 37.5 mg PO BEDTIME 04/04/17 cloNIDine HCL [Catapres] 0.1 mg PO Q6H PRN 04/04/17 Alendronate Sodium [Fosamax] 70 mg PO WKLY 05/30/17 Cyclobenzaprine HCl [Flexeril] 10 mg PRN PRN 05/30/17 Diclofenac Sodium (Topical) [Diclofenac Sodium 1.5 %] 1 olivia TD BID 05/30/17 Docusate Calcium [Surfak] 240 mg PO BEDTIME cap 06/03/17 HYDROcodone 5MG/APAP 325MG [[place] 5/325] 1 ea PO Q4H PRN tab 06/03/17 Metoprolol Succinate [Toprol Xl] 50 mg PO DAILY tab.er.24 06/03/17 Losartan Potassium [Cozaar] 25 mg PO BID 06/04/17 Docusate Sodium [Colace] 100 mg PO DAILY cap 06/09/17 Enoxaparin Sodium [Lovenox] 75 mg SUBCU Q12HR #10 syg 06/09/17 HYDROcodone 10MG/APAP 325MG [[place] 10/325] 1 ea PO Q4H PRN tab 06/09/17 Ondansetron Tab [Zofran Tab] 4 mg PO Q4H PRN #30 tab 06/09/17 Sucralfate Tab [Carafate Tab] 1 gm PO ACHS #120 tab 06/09/17 Warfarin Sodium 7.5 mg PO DAILY #10 tab 06/09/17 Review of Systems - Review of Systems Constitutional: States: no symptoms reported EENTM: States: no symptoms reported Respiratory: States: no symptoms reported Cardiology: States: no symptoms reported Gastrointestinal/Abdominal: States: no symptoms reported Genitourinary: States: no symptoms reported Musculoskeletal: States: see HPI Skin: States: see HPI Neurological: States: no symptoms reported Endocrine: States: no symptoms reported Past Medical History (General) - Patient Medical History Hx Seizures: No Hx Stroke: No Hx Asthma: No Hx of COPD: No Hx Cardiac Disorders: Yes Hx Congestive Heart Failure: No Hx Pacemaker: No Hx Hypertension: Yes Hx Thyroid Disease: Yes Hx Diabetes: No Hx Gastroesophageal Reflux: Yes Hx MRSA: No Hx Other PMH: Yes - fibromyalgia Surgical History: cholecystectomy, other - right knee,right forearm,hysterectomy - Vaccination History Hx Tetanus, Diphtheria Vaccination: Yes Hx Influenza Vaccination: Yes Hx Pneumococcal Vaccination: Yes - Social History Hx Tobacco Use: No Hx Alcohol Use: Yes - occasional Hx Substance Use: No Hx Substance Use Treatment: No Hx Depression: Yes Hx Physical Abuse: No Hx Emotional Abuse: No Hx Suspected Abuse: No - Female History Patient : No Family Medical History - Family History Mother Family History: Unknown Living Status: Hx Family Hypertension: Yes - mom Hx Cardiac Disease: Yes - dad Hx Family;Other: [facility] Physical Exam - Physical Exam General Appearance: Alert, Comfortable, No apparent distress, Other - speech fluent Eyes, Ears, Nose, Throat Exam: normal ENT inspection, TMs normal, pharynx normal , other - non bleeding laceration oral mucosa upper lip Neck: non-tender, full range of motion, supple, normal inspection Cardiovascular/Respiratory: regular rate, rhythm, no M/R/G, normal peripheral pulses, normal breath sounds Abdominal Exam: non-tender, no organomegaly Back Exam: no CVA tenderness, no vertebral tenderness Shoulder Exam: normal inspection, no evidence of injury Elbow/Forearm Exam: non-tender - elbow joint, bone tenderness, ecchymosis, limited ROM - right Wrist Exam: bone tenderness - right, ecchymosis, limited ROM Hand Exam: normal inspection, non-tender, no evidence of injury, ecchymosis - dorsal aspect hand Neuro/Tendon: normal sensation, normal motor functions, normal tendon functions , responds to pain Mental Status: alert, oriented x 3 Skin Exam: normal color, warm/dry Progress - Progress Progress: 12/24/17 12:23 Vital Signs - 8 hr 12/24/17 11:18 Temperature 98.7 F Pulse Rate [ 98 H pulse ox] Respiratory 20 Rate Blood Pressure 136/68 [Left Arm] O2 Sat by Pulse 98 Oximetry 12/24/17 13:29 X-ray showing positive fat pad right elbow but patient not haing pains right elbow ,no swelling,able to move right elbow pronation,supination,extension flexion w/o pain offered also Tdap but wants their primary Md to consult first to look at her medical records. 12/24/17 13:34 - EKG/XRAY/CT XRAY: elbow - ulnar fragment ? fx;positive fat pad Departure - Departure Clinical Impression: Fall against object Fracture of ulna near wrist Qualifiers: Encounter type: initial encounter Fracture type: closed Fracture morphology: unspecified fracture morphology Laterality: right Qualified Code(s): S52.601A - Unspecified fracture of lower end of right ulna, initial encounter for closed fracture Time of Disposition: 13:31 Disposition: Discharge to Home or Self Care Condition: Fair Departure Forms: ED Discharge - Pt. Copy, Patient Portal Self Enrollment Referrals: Aleksander Daley MD [Primary Care Provider] - 1-2 Weeks Home Medications: Ambulatory Orders Furosemide [Lasix] 40 mg PO DAILY 02/20/14 Levothyroxine Sodium 125 mcg PO DAILY 02/20/14 Ropinirole Hydrochloride [Requip] 4 mg PO BEDTIME 02/20/14 Gabapentin 600 mg PO BEDTIME 04/04/17 Imipramine HCl 25 mg PO BEDTIME 04/04/17 Loratadine [Claritin] 10 mg PO BEDTIME 04/04/17 Pantoprazole Tablet [Protonix] 40 mg PO ACBK 04/04/17 Polyethylene Glycol 3350 [Miralax] 17 gm PO DAILY 04/04/17 Potassium Chloride [Potassium Chloride ER] 10 meq PO DAILY 04/04/17 Tramadol HCl 50 mg PO Q4H PRN 04/04/17 Venlafaxine HCl 37.5 mg PO BEDTIME 04/04/17 cloNIDine HCL [Catapres] 0.1 mg PO Q6H PRN 04/04/17 Alendronate Sodium [Fosamax] 70 mg PO WKLY 05/30/17 Cyclobenzaprine HCl [Flexeril] 10 mg PRN PRN 05/30/17 Diclofenac Sodium (Topical) [Diclofenac Sodium 1.5 %] 1 olivia TD BID 05/30/17 Docusate Calcium [Surfak] 240 mg PO BEDTIME cap 06/03/17 HYDROcodone 5MG/APAP 325MG [[place] 5/325] 1 ea PO Q4H PRN tab 06/03/17 Metoprolol Succinate [Toprol Xl] 50 mg PO DAILY tab.er.24 06/03/17 Losartan Potassium [Cozaar] 25 mg PO BID 06/04/17 Docusate Sodium [Colace] 100 mg PO DAILY cap 06/09/17 Enoxaparin Sodium [Lovenox] 75 mg SUBCU Q12HR #10 syg 06/09/17 HYDROcodone 10MG/APAP 325MG [[place] 10/325] 1 ea PO Q4H PRN tab 06/09/17 Ondansetron Tab [Zofran Tab] 4 mg PO Q4H PRN #30 tab 06/09/17 Sucralfate Tab [Carafate Tab] 1 gm PO ACHS #120 tab 06/09/17 Warfarin Sodium 7.5 mg PO DAILY #10 tab 06/09/17 Additional Instructions: Keep appointment with Dr. Adams 27 December 2017 continue with all home medications.Elevate right upper extremity 20 degrees at bedtime
--- NOTE | 2017-12-24 13:05 | RAD ---
EXAM DESCRIPTION: Forearm,Right (accession [id number]), Hand,Right 3 Views (accession [id number]) CLINICAL HISTORY: 82 years Female, fall COMPARISON: Right wrist dated November 06, 2015. FINDINGS: RIGHT FOREARM: There is screw and plate fixation of a previously noted distal right radial fracture, which is in satisfactory alignment. A separate small fragment of bone is noted at the ulnar (medial) margin of the distal radius on the PA hand film, potentially representing a newer nondisplaced fracture of uncertain age. This is difficult to confirm on the forearm films. There appears to be a slightly distracted fracture of the ulnar styloid, difficult to identify previously and possibly new, although there is residual deformity of the distal ulna consistent with healing of a previously identified fracture. The radial and ulnar shafts appear intact. There is a question of slight anterior fat pad elevation at the elbow, which could indicate joint effusion or hemorrhage, but a fracture in this location is not obvious. RIGHT HAND: There is no evidence of acute fracture or dislocation or destructive bony lesion identified in the right hand, where bony structures appear somewhat demineralized. Joint spaces appear fairly well maintained. There is chronic deformity of a small trapezoid bone in the wrist and absence of the trapezium, also the case on the earlier wrist films. Soft tissue swelling is noted at the dorsal aspect of the hand. IMPRESSION: Old posttraumatic and postoperative changes in the distal forearm. Apparent slightly distracted ulnar styloid fracture and a suspected small nondisplaced fracture fragment at the ulnar (medial) margin of the distal radius. Questionable fat pad elevation at the elbow, potentially due to an occult fracture. Short-term follow-up of this area is suggested if there are pertinent clinical symptoms. Electronically signed by: Cuate Fletcher MD 12/24/2017 1:04 PM CDT
[2017-12-24 14:08] VITALS: BP 150/83
== END 2017-12-24 14:05 | disposition home or self-care (01) ==
LOC: ER 11:06
DX: S52.611A Displaced fracture of right ulna styloid process, initial encounter for closed fracture (principal); S01.511A Laceration without foreign body of lip, initial encounter; I10 Essential (primary) hypertension; E07.9 Disorder of thyroid, unspecified; K21.9 Gastro-esophageal reflux disease without esophagitis; F32.9 Major depressive disorder, single episode, unspecified; M79.7 Fibromyalgia; I51.9 Heart disease, unspecified; Z79.899 Other long term (current) drug therapy; Z88.2 Allergy status to sulfonamides; W01.0XXA Fall on same level from slipping, tripping and stumbling without subsequent striking against object, initial encounter; Y92.009 Unspecified place in unspecified non-institutional (private) residence as the place of occurrence of the external cause

== ENCOUNTER 2018-06-22 23:48 | Emergency (ER) | payer MEDICARE, OTHER | END 2018-06-23 00:15 | disposition left against medical advice (07) | LOC: ER 23:48 | DX: R05 Cough (principal); Z53.21 Procedure and treatment not carried out due to patient leaving prior to being seen by health care provider ==

== ENCOUNTER → 2018-07-18 | Outpatient (CLI) | payer MEDICARE, OTHER ==
[~2018-07-18] MED LIST: ALBUTEROL SULFATE 2.5 MG/3 ML VIAL NEB ONE
== END ==
LOC: RESP 10:02
PROVIDERS: ATTEND Family Medicine
DX: R05 Cough (principal)
CPT/HCPCS: 94060; J7611

== ENCOUNTER → 2018-08-23 | Outpatient (CLI) | payer MEDICARE, OTHER | LOC: GMAE 14:45 | PROVIDERS: ATTEND Family Medicine | DX: K92.1 Melena (principal) ==

== ENCOUNTER → 2018-11-08 | Outpatient (CLI) | payer MEDICARE, OTHER ==
[~2018-11-08] MED LIST changes: -ALBUTEROL SULFATE 2.5 MG/3 ML VIAL NEB ONE; +IPRATROPIUM/ALBUTEROL 3 ML VIAL NEB ONE
== END ==
LOC: GMAE 10:38
PROVIDERS: ATTEND Family Medicine
DX: R05 Cough (principal); I10 Essential (primary) hypertension; E03.9 Hypothyroidism, unspecified; E78.2 Mixed hyperlipidemia
CPT/HCPCS: 84439; 84443; 84481; 94060; J7620

== ENCOUNTER 2019-01-29 05:06 | Day surgery (SDC) | payer MEDICARE, OTHER ==
[2019-01-29] MEDS ORDERED: PROPARACAINE 0.5% OPHTH SOL 15 ML BTTL ONE (05:56)
[2019-01-29] MEDS ORDERED: TROP 1%/CYCLOPEN 1%/PHENYL 2% DROPS ONE (05:56)
[2019-01-29] MEDS ORDERED: MIDAZOLAM INJ 2 MG/2 ML VIAL ONE (08:42)
[2019-01-29] MEDS ORDERED: PROPARACAINE 0.5% OPHTH SOL 15 ML BTTL RIGHT_EYE ONE (08:45)
[2019-01-29] MEDS ORDERED: LIDOCAINE 1% MPF 2 ML VIAL INJ ONE (08:56)
[2019-01-29] MEDS ORDERED: DEXAMETHASONE 0.1% OPHTH SOL 1 DROP RIGHT_EYE ONE ×2 (08:56→09:11)
[2019-01-29] MEDS ORDERED: BRIMONIDINE 0.2% OPHTH DROPS RIGHT_EYE ONE ×2 (08:56→09:11)
[2019-01-29] MEDS ORDERED: TOBRAMYCIN SULF 0.3 % OPHT SOL 1 DROP RIGHT_EYE ONE ×2 (08:56→09:11)
[2019-01-29] MEDS ORDERED: MOXIFLOXACIN HCL (OPHTH) 1 DROP DROPS RIGHT_EYE ONE ×2 (09:03→09:10)
== END 2019-01-29 09:56 | disposition home or self-care (01) ==
LOC: AMB 05:06
PROVIDERS: ATTEND Ophthalmology
DX: H25.11 Age-related nuclear cataract, right eye (principal); I10 Essential (primary) hypertension; Z88.2 Allergy status to sulfonamides; Z79.899 Other long term (current) drug therapy
CPT/HCPCS: 00142; 66984; J2250

== ENCOUNTER 2019-02-12 05:33 | Day surgery (SDC) | payer MEDICARE, OTHER ==
[2019-02-12] MEDS ORDERED: MOXIFLOXACIN HCL (OPHTH) 1 DROP DROPS ONE (05:51)
[2019-02-12] MEDS ORDERED: TROP 1%/CYCLOPEN 1%/PHENYL 2% DROPS ONE (05:51)
[2019-02-12] MEDS ORDERED: PROPARACAINE 0.5% OPHTH SOL 15 ML BTTL ONE (05:51)
[2019-02-12] MEDS ORDERED: MIDAZOLAM INJ 2 MG/2 ML VIAL ONE (07:49)
[2019-02-12] MEDS ORDERED: PROPARACAINE 0.5% OPHTH SOL 15 ML BTTL LEFT_EYE ONE (07:58)
[2019-02-12] MEDS ORDERED: LIDOCAINE 1% 2 ML VIAL INJ ONE (08:06)
[2019-02-12] MEDS ORDERED: MOXIFLOXACIN HCL (OPHTH) 1 DROP DROPS LEFT_EYE ONE ×2 (08:18→08:19)
[2019-02-12] MEDS ORDERED: DEXAMETHASONE 0.1% OPHTH SOL 1 DROP LEFT_EYE ONE ×2 (08:18→08:21)
[2019-02-12] MEDS ORDERED: BRIMONIDINE 0.2% OPHTH DROPS LEFT_EYE ONE ×2 (08:19→08:21)
[2019-02-12] MEDS ORDERED: TOBRAMYCIN-DEXAMETH OPHTH SOL 1 DROP LEFT_EYE ONE ×2 (08:19→08:21)
== END 2019-02-13 08:52 | disposition home or self-care (01) ==
LOC: AMB 05:33
PROVIDERS: ATTEND Ophthalmology
DX: H25.12 Age-related nuclear cataract, left eye (principal); I10 Essential (primary) hypertension; Z88.8 Allergy status to other drugs, medicaments and biological substances; Z79.899 Other long term (current) drug therapy
CPT/HCPCS: 00142; 66984; J2250

== ENCOUNTER → 2019-05-07 | Outpatient (CLI) | payer MEDICARE, OTHER ==
--- NOTE | 2019-05-07 11:06 | CT ---
EXAM DESCRIPTION: Chest w/o Contrast CLINICAL HISTORY: COUGH COMPARISON: None. TECHNIQUE: Noncontrast transaxial CT images of the chest are obtained. Images are moderately degraded by patient motion artifact. This exam was performed according to our departmental dose-optimization program, which includes automated exposure control, adjustment of the mA and/or kV according to patient size and/or use of iterative reconstruction technique . FINDINGS: Heart shows moderate coronary artery calcifications. Scattered calcified plaque of the thoracic aorta. No pathologically enlarged mediastinal, hilar, or axillary lymphadenopathy seen.. Calcified lymph nodes in the right infrahilar and subcarinal region. Visualized portion of the upper abdomen shows large fluid attenuation cortical cyst of the left kidney measuring at least 7.4 cm stable from previous CT of the abdomen and pelvis. Severe diffuse fatty replacement of the pancreas is noted which can be seen in patients with chronic diabetes. Air-filled diverticuli of the portions of the duodenum are seen. Large retrocardiac hiatal hernia. Multiple surgical clips in the epigastric region are seen. Several calcified pulmonary nodules in the right lower lobe are seen. Lungs are normally aerated to mildly hyperinflated with mild centrilobular emphysematous changes. No acute appearing infiltrate or consolidation is identified. Mild interstitial thickening in the medial aspect of the right lower lobe likely represent scarring or atelectasis adjacent to hypertrophic osteophytes of the spine. No worrisome noncalcified pulmonary nodules. Osseous structures show no aggressive bony lesions moderate spondylitic changes of the spine are seen with severe osteoarthritic changes of the right shoulder. Remote burst compression fracture deformity of T12 contributes to at least mild spinal canal stenosis. Increased kyphosis of the spine is seen. IMPRESSION: Mild emphysematous changes to lungs are seen without acute infiltrate or consolidation. Chronic appearing interstitial scarring or atelectasis in the medial right lower lobe adjacent to the bony osteophytes of the spine are seen. Moderate retrocardiac hiatal hernia with postsurgical changes at the gastroesophageal junction are seen. Also granulomatous disease is identified. Electronically signed by: Bridger Palacio MD 05/07/2019 11:04 AM [facility]
== END ==
LOC: CT 10:05
PROVIDERS: ATTEND Family Medicine
DX: J43.9 Emphysema, unspecified (principal); J98.4 Other disorders of lung; R91.8 Other nonspecific abnormal finding of lung field; K44.9 Diaphragmatic hernia without obstruction or gangrene; Z98.890 Other specified postprocedural states

== ENCOUNTER → 2019-09-14 | Outpatient (CLI) | payer MEDICARE, OTHER ==
--- NOTE | 2019-09-14 14:39 | RAD ---
XR SHOULDER 2 OR MORE VIEWS HISTORY: 84 years Female pain in right shoulder COMPARISON: CT chest dated May 07, 2019. TECHNIQUE: 4 views of the right shoulder. FINDINGS: No acute fracture or dislocation observed. Severe joint space narrowing with [id number] apposition and marked subchondral cystic change and osseous remodeling is demonstrated at the right glenohumeral joint. The degree of osseous change limits evaluation for subtle abnormalities such as nondisplaced fractures. Within these limitations, no acute fracture or dislocation is observed. Moderate degenerative changes at the right acromioclavicular joint, with large inferiorly directed osteophytes. Acromiohumeral interval appears maintained. Calcific density superior to the humeral head near the footplate suggests calcific tendinosis of the rotator cuff tendons. Probable small intra-articular osseous loose bodies in the right shoulder. Marked degenerative changes again seen in the included spine. Atherosclerotic changes again seen in the thoracic aorta. 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 This somewhat limits exam. No acute osseous injury detected within these limitations. Suspect small intra-articular loose bodies. Moderate arthropathy of the right AC joint with large inferiorly directed osteophytes. These may result in impingement on the traversing rotator cuff. Findings suggesting calcific tendinosis of the rotator cuff. Electronically signed by: Cam Reyes MD 09/14/2019 2:38 PM CDT
== END ==
LOC: RAD 08:53
PROVIDERS: ATTEND Orthopaedic Surgery
DX: M19.011 Primary osteoarthritis, right shoulder (principal); M25.811 Other specified joint disorders, right shoulder; M25.711 Osteophyte, right shoulder

== ENCOUNTER → 2019-09-21 | Outpatient (CLI) | payer MEDICARE, OTHER ==
--- NOTE | 2019-09-21 13:39 | CT ---
EXAM DESCRIPTION: CT right shoulder CLINICAL HISTORY: Posttraumatic osteoarthritis. Shoulder pain COMPARISON: None Available. TECHNIQUE: Spiral CT with multiplanar reformatted images. This exam was performed according to our departmental dose-optimization program, which includes automated exposure control, adjustment of the mA and/or kV according to patient size and/or use of iterative reconstruction technique. FINDINGS: Severe glenohumeral osteoarthritis. Central scalloping with medialization of the articular surface about 5 mm. No retroversion, type A2 glenoid. Several subchondral cysts the largest of which is 1.1 cm Full-thickness chondral loss over the entire humeral head with a large inferior medial humeral head osteophyte ridge projecting about 2 cm, filling the axillary recess. Joint effusion with several small intra-articular loose bodies. A large loose body along the anterior axillary recess, measuring up to 1.8 cm. Moderate acromioclavicular osteoarthritis. Anterior lateral downsloping of the acromion with acromial spur. Degenerative thin supraspinatus and infraspinatus tendons. No subacromial subdeltoid bursal fluid to diagnose full-thickness rotator cuff tear. Muscle volumes are moderately decreased with grade 2 fatty infiltration Narrow coracohumeral interval predisposing to chronic coracoid impingement of the subscapularis. Thin subscapularis tendon with moderate muscle volume loss and grade 2 fatty infiltration. Deltoid muscle is normal. Non-MSK: No mass or adenopathy in the visualized right upper chest IMPRESSION: Severe glenohumeral osteoarthritis with type A2 glenoid. Degenerative rotator cuff without full-thickness tear or tendon retraction. Moderate muscle volume loss and grade 2 fatty infiltration Electronically signed by: Anirudh Ramon MD 09/21/2019 1:37 PM CDT
== END ==
LOC: CT 09:00
PROVIDERS: ATTEND Orthopaedic Surgery
DX: M19.111 Post-traumatic osteoarthritis, right shoulder (principal); M62.89 Other specified disorders of muscle

== ENCOUNTER → 2019-10-30 | Outpatient (CLI) | payer MEDICARE, OTHER | LOC: GMAE 10:32 | PROVIDERS: ATTEND Family Medicine | DX: Z01.812 Encounter for preprocedural laboratory examination (principal); Z79.899 Other long term (current) drug therapy; Z79.01 Long term (current) use of anticoagulants ==

== ENCOUNTER → 2020-01-02 | Outpatient (CLI) | payer MEDICARE, OTHER | LOC: GMAE 14:41 | PROVIDERS: ATTEND Family Medicine | DX: N39.0 Urinary tract infection, site not specified (principal) ==

== ENCOUNTER 2020-01-14 05:26 | Day surgery (SDC) | payer MEDICARE, OTHER ==
[2020-01-14] MEDS ORDERED: DEXAMETHASONE INJ 10 MG/ML VIAL ONE (08:50)
[2020-01-14] MEDS ORDERED: BUPIVACAINE 0.5% 30 ML VIAL INJ ONE ×2 (08:51→10:45)
[2020-01-14] MEDS ORDERED: BETAMETHASONE ACETATE/BETAMETH 6 MG/ML VIAL IM ONE ×2 (08:51→10:45)
[2020-01-14] MEDS ORDERED: LIDOCAINE 1% MPF 5 ML VIAL ONE (10:01)
[2020-01-14] MEDS ORDERED: LIDOCAINE 1% 10 ML VIAL INJ ONE (10:45)
--- NOTE | 2020-01-17 13:22 | RAD ---
PROVIDED CLINICAL HISTORY/REASON FOR EXAM: RT SI INJECTION Findings/impression: One intraoperative fluoroscopic images. Please see operative note Dose: 5.8 mGy Time: 15.7 seconds Electronically signed by: Stanton Mora MD 01/17/2020 1:20 PM CDT
== END 2020-01-14 11:45 | disposition home or self-care (01) ==
LOC: AMB 05:26
PROVIDERS: ATTEND Family Medicine Sports Medicine
DX: M53.3 Sacrococcygeal disorders, not elsewhere classified (principal); M46.1 Sacroiliitis, not elsewhere classified; K21.9 Gastro-esophageal reflux disease without esophagitis; I10 Essential (primary) hypertension; E03.9 Hypothyroidism, unspecified; Z88.2 Allergy status to sulfonamides; Z88.8 Allergy status to other drugs, medicaments and biological substances; Z79.899 Other long term (current) drug therapy

== ENCOUNTER 2020-01-29 11:28 | Emergency (ER) | payer MEDICARE, OTHER ==
[2020-01-29] MEDS ORDERED: SODIUM CHLORIDE 0.9% (FLUSH) 10 ML SYG IV PRN (12:03)
[2020-01-29] MEDS ORDERED: ASPIRIN TABLET 325 MG TAB PO ONE (12:03)
--- NOTE | 2020-01-29 12:21 | ED.PDOC ---
History of Present Illness - General Chief Complaint: General Stated Complaint: left arm pain Time Seen by Provider: 01/29/20 11:48 Source: patient Exam Limitations: no limitations - History of Present Illness Initial Comments: 2D LUE PAIN. CALLED PCP, DDX INCLUDES STROKE THUS SENT TO ER FOR EVALUATION. DESCRIBED AN "ACHE", SEEMS ASSOCIATED WITH HER PULSE. COMES AND GOES. LOCATED IN LUE (ARM, FOREARM, HAND) AND OCCASIONALLY L SCAPULA. HER BP YESTERDAY WAS 177/99 SO SHE TOOK HER "PRN HTN MED" (CLONIDINE). DENIES TRAUMA. NO PAIN W/ MOVEMENT. JUST AN ACHE REGARDLESS OF WHETHER SHE USES THE ARM OR NOT. NO DECR STRENGTH. NO CP. NO JAW PAIN. Timing/Duration: intermittent Severity: moderate Improving Factors: nothing Worsening Factors: nothing Associated Symptoms: denies symptoms Allergies/Adverse Reactions: Allergies Sulfa Drugs Allergy (Verified 01/29/20 11:36) Unknown Home Medications: Ambulatory Orders Furosemide [Lasix] 40 mg PO PRN 02/20/14 Levothyroxine Sodium 125 mcg PO DAILY 02/20/14 Gabapentin 600 mg PO BEDTIME 04/04/17 Loratadine [Claritin] 10 mg PO BEDTIME 04/04/17 Pantoprazole Tablet [Protonix] 40 mg PO ACBK 04/04/17 Polyethylene Glycol 3350 [Miralax] 17 gm PO DAILY 04/04/17 Potassium Chloride [Potassium Chloride ER] 10 meq PO DAILY 04/04/17 Tramadol HCl 50 mg PO Q4H PRN 04/04/17 Venlafaxine HCl 37.5 mg PO BEDTIME 04/04/17 cloNIDine HCL [Catapres] 0.1 mg PO Q6H PRN 04/04/17 Alendronate Sodium [Fosamax] 70 mg PO WKLY 05/30/17 Cyclobenzaprine HCl [Flexeril] 10 mg PRN PRN 05/30/17 Diclofenac Sodium (Topical) [Diclofenac Sodium] 1 olivia TD TID 05/30/17 Losartan Potassium [Cozaar] 25 mg PO BID 06/04/17 Pramipexole Dihydrochloride [Pramipexole Dihydrochlori] 0.5 mg PO DAILY 01/29/19 Review of Systems - Review of Systems Constitutional: Denies: chills, fever EENTM: Denies: blurred vision, throat pain Respiratory: Denies: cough, short of breath Cardiology: Denies: chest pain, palpitations Gastrointestinal/Abdominal: Denies: abdominal pain, nausea Genitourinary: Denies: dysuria, frequency Musculoskeletal: Denies: back pain, joint pain, joint swelling, neck pain Skin: Denies: lesions, lumps, rash Neurological: States: paresthesia - LUE. Denies: headache Endocrine: Denies: unexplained weight gain, unexplained weight loss Hematologic/Lymphatic: Denies: easy bleeding, easy bruising All other Systems: Reviewed and Negative Past Medical History (General) - Patient Medical History Hx Seizures: No Hx Stroke: No Hx Asthma: No Hx of COPD: No Hx Cardiac Disorders: Yes Hx Congestive Heart Failure: No Hx Pacemaker: No Hx Hypertension: Yes Hx Thyroid Disease: Yes Hx Diabetes: No Hx Gastroesophageal Reflux: Yes Hx MRSA: No Surgical History: appendectomy, cholecystectomy - Vaccination History Hx Tetanus, Diphtheria Vaccination: Yes Hx Influenza Vaccination: Yes Hx Pneumococcal Vaccination: Yes - Social History Hx Tobacco Use: No Hx Alcohol Use: Yes - occasional Hx Substance Use: No Hx Substance Use Treatment: No Hx Depression: Yes Hx Physical Abuse: No Hx Emotional Abuse: No Hx Suspected Abuse: No - Activities of Daily Living Hospice Agency (if applicable):: None - Female History Patient : No Family Medical History - Family History Mother Family History: Unknown Living Status: Hx Family Hypertension: Yes - mom Hx Cardiac Disease: Yes - dad Hx Family;Other: sister-[facility] Physical Exam - Physical Exam General Appearance: Alert, No apparent distress Eye Exam: bilateral normal Ears, Nose, Throat: hearing grossly normal, normal ENT inspection Neck: full range of motion, supple, normal inspection Respiratory: lungs clear, normal breath sounds Cardiovascular/Chest: regular rate, rhythm, no murmur Peripheral Pulses: radial,right: 2+, radial,left: 2+ Gastrointestinal/Abdominal: normal bowel sounds, non tender, soft Rectal Exam: deferred Back Exam: normal inspection, no CVA tenderness Extremity: normal range of motion, non-tender - LUE, SHOULDER, SCAPULA NTTP. NO PAIN WITH ACTIVE AND PASSIVE ROM., normal inspection Neurologic: head of measurement & insights II-XII nml as tested, no motor/sensory deficits, alert, normal mood/affect DTR: 3+: Biceps, left, Brachioradialis, left Skin Exam: normal color, warm/dry Lymphatic: no adenopathy Progress - Progress Progress: 01/29/20 13:24 W/U FOR EMERGENT ETX OF HER 2 D LUE PARESTHESIAS NEG FOR STROKE AND ACS. HEAD CT, EKG, CXR, CARD ENZ, CBC, CMP, COAGS ALL NEG. DDX INCLUDES CERVICAL SPINE NERVE IMPINGEMENT (PT STATES H/O C6 PROBLEM), ORTHO/OVERUSE, TRANSIENT PARESTHESIAS FROM HTN (ARTERIAL ATHEROSCLEROSIS CLAUDICATION). I AM REFERRING TO NEUROLOGY FOR POSSIBLE NON-EMERGENT FURTHER OUTPT WORKUP, SUCH MRI BRAIN, CAROTID U/S, ECHOCARDIOGRAM, POSSIBLE NERVE CONDUCTION STUDIES/ELECTROMYOGRAM. SAFE FOR DC TO HOME. RETURN PRECAUTIONS GIVEN. Departure - Departure Clinical Impression: Paresthesia of left upper extremity Disposition: Discharge to Home or Self Care Condition: Good Departure Forms: ED Discharge - Pt. Copy, Patient Portal Self Enrollment Instructions: Paresthesias (DC) Diet: resume usual diet Activity: increase activity as tolerated Referrals: LENARD PATEL MD [Primary Care Provider] - 1-2 Weeks KARMA SOSA MD [Consulting Staff] - 1-2 Days Home Medications: Ambulatory Orders Furosemide [Lasix] 40 mg PO PRN 02/20/14 Levothyroxine Sodium 125 mcg PO DAILY 02/20/14 Gabapentin 600 mg PO BEDTIME 04/04/17 Loratadine [Claritin] 10 mg PO BEDTIME 04/04/17 Pantoprazole Tablet [Protonix] 40 mg PO ACBK 04/04/17 Polyethylene Glycol 3350 [Miralax] 17 gm PO DAILY 04/04/17 Potassium Chloride [Potassium Chloride ER] 10 meq PO DAILY 04/04/17 Tramadol HCl 50 mg PO Q4H PRN 04/04/17 Venlafaxine HCl 37.5 mg PO BEDTIME 04/04/17 cloNIDine HCL [Catapres] 0.1 mg PO Q6H PRN 04/04/17 Alendronate Sodium [Fosamax] 70 mg PO WKLY 05/30/17 Cyclobenzaprine HCl [Flexeril] 10 mg PRN PRN 05/30/17 Diclofenac Sodium (Topical) [Diclofenac Sodium] 1 olivia TD TID 05/30/17 Losartan Potassium [Cozaar] 25 mg PO BID 06/04/17 Pramipexole Dihydrochloride [Pramipexole Dihydrochlori] 0.5 mg PO DAILY 01/29/19 Additional Instructions: Dr. Sosa, neurologist, will be in [place] Jan 30. Please call his office today to make an appointment for further evaluation. Please return to the ER immediately if your symptoms change or worsen, such as chest pain, weakness in the face, arms, or legs, or any other concerns.
--- NOTE | 2020-01-29 12:51 | RAD ---
EXAM DESCRIPTION: Chest,1 View CLINICAL HISTORY: LUE PARESTHESIAS X 2 DAYS. COMPARISON: May 07, 2019 CT IMPRESSION: Single AP portable upright view of the chest shows enlargement of the cardiac silhouette without pulmonary vascular congestion.. Lungs are normally aerated and clear. No obvious pleural effusion or pneumothorax is seen. Right shoulder reverse arthroplasty changes are seen. Retrocardiac hiatal hernia is seen. Electronically signed by: Bridger Palacio MD 01/29/2020 12:50 PM CDT
--- NOTE | 2020-01-29 12:51 | CT ---
EXAM DESCRIPTION: Head CLINICAL HISTORY: 85 years Female, LUE PARESTHESIAS X 2 DAYS. COMPARISON: CT head 10/07/2006. TECHNIQUE: Axial images obtained from the skull base to the vertex without intravenous contrast with images. Coronal and sagittal reformations provided. This exam was performed according to our departmental dose-optimization program, which includes automated exposure control, adjustment of the mA and/or kV according to patient size and/or use of iterative reconstruction technique. Time Last Seen Well (If known) for Code Stroke: n/a FINDINGS: Brain Parenchyma, ventricles, meninges, and extra-axial spaces: Moderate general cerebral atrophy. Mild Nonspecific white matter hypodensities in the cerebral hemispheres likely related to ischemic small vessel disease. Possible difficulty differentiating a small acute infarction given these hypodensities. No acute intracranial hemorrhage. No abnormal extra-axial fluid collection. Vascular: Atherosclerosis is within the carotid siphons. Calvarium, paranasal sinuses, mastoids, and orbits: Calvarium intact. Visualized paranasal sinuses and mastoid air cells clear. Bilateral lens replacement. IMPRESSION: 1. No acute intracranial abnormality. Of note, CT is relatively insensitive when compared to MRI for evaluation of acute ischemic infarction. If there remains clinical concern, MRI of the brain is recommended. 2. Senescent changes. Electronically signed by: Jabari Gan MD 01/29/2020 12:49 PM CDT
[2020-01-29 13:41] VITALS: BP 132/92; TEMP 97.3; O2SAT 99
== END 2020-01-29 13:41 | disposition home or self-care (01) ==
LOC: ER 11:28
DX: R20.2 Paresthesia of skin (principal); M79.632 Pain in left forearm; F32.9 Major depressive disorder, single episode, unspecified; K21.9 Gastro-esophageal reflux disease without esophagitis; E07.9 Disorder of thyroid, unspecified; I10 Essential (primary) hypertension; I51.9 Heart disease, unspecified; Z79.899 Other long term (current) drug therapy; Z88.2 Allergy status to sulfonamides

== ENCOUNTER → 2020-04-15 | Outpatient (CLI) | payer MEDICARE, OTHER ==
--- NOTE | 2020-04-21 11:08 | MRI ---
PROVIDED CLINICAL HISTORY/REASON FOR EXAM: RADICULOPATHY TECHNIQUE: Multiplanar, multisequence MRI examination performed of the cervical spine without intravenous contrast material. COMPARISON: August 17, 2016 FINDINGS: Alignment: Degenerative grade 1 anterolisthesis C7 on T1. Fracture: Edema like signal in the bilateral T1 pedicles and facet joints. No vertebral body height loss. Prevertebral / Paraspinal Soft Tissues: Unremarkable. Cervicomedullary Junction: Unremarkable. Cervical Spinal Cord: Normal. C1/2: No significant abnormality. C2/3: Small symmetric disc bulge osteophyte complex. No significant stenosis. Bilateral facet and uncinate process hypertrophy. C3/4: Asymmetric left disc bulge osteophyte complex with a superimposed left foraminal disc protrusion measuring 0.7 x 0.4 cm. Left greater than right facet and uncinate process hypertrophy. No significant central canal stenosis. Severe left neural foraminal narrowing. No right neural foraminal narrowing. C4/5: Bilateral facet and uncinate process hypertrophy. No significant stenosis. C5/6: Disc desiccation with loss of disc space height and endplate degenerative change. Diffuse symmetric disc bulge osteophyte complex. Indentation of the ventral thecal sac. No significant central canal stenosis. Right greater than left facet and uncinate process hypertrophy. Moderate to severe right neural foraminal narrowing. No left neural foraminal narrowing. C6/7: Disc desiccation with loss of disc space height and endplate degenerative change. Diffuse symmetric disc bulge osteophyte complex. Indentation of the ventral cord. No underlying cord signal abnormality. Mild central canal stenosis. Moderate right and mild left neural foraminal narrowing with facet and uncinate process hypertrophy. C7/T1: Disc desiccation with loss of disc space height and endplate degenerative change. Diffuse symmetric disc bulge osteophyte complex. Indentation of the ventral cord. No underlying cord signal abnormality. Moderate central canal stenosis. Moderate bilateral neural foraminal narrowing. IMPRESSION: 1. Progressed acquired degenerative changes of the cervical spine as above. 2. Edema like signal in the bilateral T1 pedicles and facet joints which may reflect a stress injury versus inflammation. Electronically signed by: Stanton Mora MD 04/21/2020 11:06 AM CONSERVATION ENGINEER
== END ==
LOC: MRI 09:00
PROVIDERS: ATTEND Family Medicine
DX: M47.22 Other spondylosis with radiculopathy, cervical region (principal); G60.3 Idiopathic progressive neuropathy; R60.0 Localized edema

== ENCOUNTER 2020-05-10 19:08 | Emergency (ER) | payer MEDICARE, OTHER ==
--- NOTE | 2020-05-10 19:24 | ED.PDOC ---
History of Present Illness - General Chief Complaint: Fever Time Seen by Provider: 05/10/20 19:10 Source: patient, RN notes reviewed, Vital Signs reviewed Exam Limitations: no limitations - History of Present Illness Initial Comments: Pt is an 85 yo female with PMH of HTN who presents to ED with not feeling well x 1 day. States she was at her baseline lst night. Awoke this morning with nonproductive cough. Also has had fatigue, body aches, loose stools and "not feeling steady" on her feet today. Denies CP, SOB, [place], dysuria, nausea or vomiting. Has not taken anything for her symptoms today. Review of Systems - Review of Systems Constitutional: States: fever. Denies: chills EENTM: States: nose congestion. Denies: throat pain Respiratory: States: cough. Denies: short of breath Cardiology: Denies: chest pain, edema, palpitations, syncope Gastrointestinal/Abdominal: States: diarrhea. Denies: abdominal pain, nausea, vomiting Genitourinary: Denies: dysuria, frequency Musculoskeletal: States: muscle pain Skin: Denies: rash Neurological: Denies: headache, numbness, paresthesia All other Systems: Reviewed and Negative Past Medical History (General) - Patient Medical History Hx Seizures: No Hx Stroke: No Hx Asthma: No Hx of COPD: No Hx Cardiac Disorders: Yes Hx Congestive Heart Failure: No Hx Pacemaker: No Hx Hypertension: Yes Hx Thyroid Disease: Yes Hx Diabetes: No Hx Gastroesophageal Reflux: Yes Hx MRSA: No - Vaccination History Hx Tetanus, Diphtheria Vaccination: Yes Hx Influenza Vaccination: Yes Hx Pneumococcal Vaccination: Yes - Social History Hx Tobacco Use: No Hx Alcohol Use: Yes - occasional Hx Substance Use: No Hx Substance Use Treatment: No Hx Depression: Yes Hx Physical Abuse: No Hx Emotional Abuse: No Hx Suspected Abuse: No - Female History Patient : No Family Medical History - Family History Mother Family History: Unknown Living Status: Hx Family Hypertension: Yes - mom Hx Cardiac Disease: Yes - dad Hx Family;Other: sister-[facility], [place] Physical Exam - Physical Exam General Appearance: Alert, Comfortable, No apparent distress ENT Exam: pharynx normal Neck: non-tender, full range of motion, supple Respiratory: chest non-tender, lungs clear, normal breath sounds, no respiratory distress Cardiovascular/Chest: regular rate, rhythm, no murmur Gastrointestinal/Abdominal: non tender, soft, no pulsatile mass Extremity: normal range of motion, non-tender, normal inspection Neurologic: no motor/sensory deficits, alert, normal mood/affect Skin Exam: normal color, warm/dry Progress - Progress Progress: 05/10/20 19:25 Pt presents to ED with 1 day h/o subj fever, cough and body aches. No known exposure to COVID. Will get labs, UA and xray to eval for sepsis, UTI, pneumonia, COVID, anemia, dehydration. 05/10/20 20:20 I have d/w pt results. CXR and labs unremarkable. She is + for COVID. She has no hypoxia or respiratory distress. no O2 requirement. I have discussed self quarentine. She will f/u with PCP tuesday as she likely would be a good candidate for Monoclonal Antibody therapy. Discussed treatment with Vit C and D, Zinc and Tylenol for fever and body aches. SRP given - Results/Orders Results/Orders: EKG- sinus tachy, rate 112, nml intervals, nonspecific ST abnormality CXR EXAM: Chest,1 View CLINICAL INDICATION: Cough COMPARISON: 01/29/2020 FINDINGS: A single view of the chest was obtained. The heart size is normal. The pulmonary vascularity is unremarkable. The lungs are clear. There is no consolidation, infiltrate, pleural effusion, or pneumothorax. IMPRESSION: No evidence of active pulmonary disease. COVID POSITIVE 05/10/20 19:20 IV Care:Saline Lock per Protoc QSHIFT Telemetry .ONCE Sodium Chloride 0.9% (Flush) [Saline Flush Syringe] 10 ml IV PRN PRN Sodium Chloride 0.9% 1000ML [Ns 1000 ml] 1,000 ml IVS ONCE EKG Assessment ONCE EKG Stat Pulse Ox Stat Pulse Oximetry Assessment DAILY 05/10/20 19:27 URINE CULTURE W/COLONY COUNT Stat 05/10/20 19:40 BLOOD CULTURE Stat 05/10/20 21:30 LACTIC ACID Q2H Laboratory Results - last 24 hr 05/10/20 05/10/20 05/10/20 19:30 19:35 19:35 WBC 5.0 RBC 4.63 Hgb 12.9 Hct 38.5 MCV 83.1 MCH 27.9 MCHC 33.5 RDW 14.4 Plt Count 242 MPV 8.4 Absolute Neuts (auto) 4.00 Absolute Lymphs (auto) 0.40 L Absolute Monos (auto) 0.40 Absolute Eos (auto) 0.20 Absolute Basos (auto) 0.00 Neutrophils % 80.1 H Lymphocytes % 7.4 L Monocytes % 8.9 Eosinophils % 3.2 Basophils % 0.4 PT INR PTT (SP) Sodium 138 Potassium 3.6 Chloride 96 L Carbon Dioxide 29 Anion Gap 16.6 BUN 19 H Creatinine 1.32 H BUN/Creatinine Ratio 14.4 Random Glucose 118 H Serum Osmolality 279.0 Lactic Acid Calcium 9.7 Total Bilirubin 0.6 AST 26 ALT 21 Alkaline Phosphatase 75 Creatine Kinase 75 CK-MB (CK-2) 1.3 CK-MB (CK-2) % Not Reportable Troponin I < 0.02 Serum Total Protein 7.9 Albumin 4.4 Globulin 3.5 Albumin/Globulin Ratio 1.3 Urine Color Yellow Urine Appearance Clear Urine pH 7.5 Ur Specific [place] 1.020 Urine Protein Negative Urine Glucose (UA) Negative Urine Ketones Negative Urine Blood Trace-intact H Urine Nitrite Negative Urine Bilirubin Negative Urine Urobilinogen 0.2 Ur Leukocyte Esterase Negative Urine RBC 1-3 Urine WBC 0 Ur Epithelial Cells 0 Urine Bacteria 0 05/10/20 05/10/20 19:35 19:35 WBC RBC Hgb Hct MCV MCH MCHC RDW Plt Count MPV Absolute Neuts (auto) Absolute Lymphs (auto) Absolute Monos (auto) Absolute Eos (auto) Absolute Basos (auto) Neutrophils % Lymphocytes % Monocytes % Eosinophils % Basophils % PT 10.4 INR 1.05 PTT (SP) 23.2 Sodium Potassium Chloride Carbon Dioxide Anion Gap BUN Creatinine BUN/Creatinine Ratio Random Glucose Serum Osmolality Lactic Acid 1.1 Calcium Total Bilirubin AST ALT Alkaline Phosphatase Creatine Kinase CK-MB (CK-2) CK-MB (CK-2) % Troponin I Serum Total Protein Albumin Globulin Albumin/Globulin Ratio Urine Color Urine Appearance Urine pH Ur Specific [place] Urine Protein Urine Glucose (UA) Urine Ketones Urine Blood Urine Nitrite Urine Bilirubin Urine Urobilinogen Ur Leukocyte Esterase Urine RBC Urine WBC Ur Epithelial Cells Urine Bacteria Departure - Departure Clinical Impression: COVID-19, Myalgia, MONCHO (acute kidney injury) Fatigue Qualifiers: Fatigue type: unspecified Qualified Code(s): R53.83 - Other fatigue Time of Disposition: 20:23 Disposition: Discharge to Home or Self Care Condition: Fair Departure Forms: ED Discharge - Pt. Copy, Patient Portal Self Enrollment Instructions: Coronavirus Disease 2019 (COVID-19) (DC) Diet: resume usual diet Activity: increase activity as tolerated Referrals: LENARD PATEL MD [Primary Care Provider] - 1-2 Days Home Medications: Ambulatory Orders Furosemide [Lasix] 40 mg PO PRN 02/20/14 Levothyroxine Sodium 125 mcg PO DAILY 02/20/14 Gabapentin 600 mg PO BEDTIME 04/04/17 Loratadine [Claritin] 10 mg PO BEDTIME 04/04/17 Pantoprazole Tablet [Protonix] 40 mg PO ACBK 04/04/17 Polyethylene Glycol 3350 [Miralax] 17 gm PO DAILY 04/04/17 Potassium Chloride [Potassium Chloride ER] 10 meq PO DAILY 04/04/17 Tramadol HCl 50 mg PO Q4H PRN 04/04/17 Venlafaxine HCl 37.5 mg PO BEDTIME 04/04/17 cloNIDine HCL [Catapres] 0.1 mg PO Q6H PRN 04/04/17 Alendronate Sodium [Fosamax] 70 mg PO WKLY 05/30/17 Cyclobenzaprine HCl [Flexeril] 10 mg PRN PRN 05/30/17 Diclofenac Sodium (Topical) [Diclofenac Sodium] 1 olivia TD TID 05/30/17 Losartan Potassium [Cozaar] 25 mg PO BID 06/04/17 Pramipexole Dihydrochloride [Pramipexole Dihydrochlori] 0.5 mg PO DAILY 01/29/19
[2020-05-10] MEDS ORDERED: ONDANSETRON INJ 4 MG/2 ML VIAL ONE (19:42)
[2020-05-10] MEDS: SODIUM CHLORIDE 0.9% 1000ML 1,000 ML IVS ONE (19:51)
[2020-05-10] MEDS: ONDANSETRON INJ 4 MG/2 ML VIAL IV ONE (19:51)
[2020-05-10] MEDS: SODIUM CHLORIDE 0.9% (FLUSH) 10 ML SYG IV PRN (19:51)
[2020-05-10] MEDS: ACETAMINOPHEN 500 MG TAB PO ONE (19:59)
--- NOTE | 2020-05-10 20:08 | RAD ---
EXAM: Chest,1 View CLINICAL INDICATION: Cough COMPARISON: 01/29/2020 FINDINGS: A single view of the chest was obtained. The heart size is normal. The pulmonary vascularity is unremarkable. The lungs are clear. There is no consolidation, infiltrate, pleural effusion, or pneumothorax. IMPRESSION: No evidence of active pulmonary disease. Electronically signed by: Nick Acuna MD 05/10/2020 8:06 PM VISITING TEACHER
[2020-05-10 20:53] VITALS: BP 181/97; TEMP 99; O2SAT 94
== END 2020-05-10 20:54 | disposition home or self-care (01) ==
LOC: ER 19:08
DX: U07.1 COVID-19 (principal); N17.9 Acute kidney failure, unspecified; R00.0 Tachycardia, unspecified; F32.9 Major depressive disorder, single episode, unspecified; I10 Essential (primary) hypertension; E07.9 Disorder of thyroid, unspecified; K21.9 Gastro-esophageal reflux disease without esophagitis; I51.9 Heart disease, unspecified; Z79.899 Other long term (current) drug therapy
CPT/HCPCS: 71045; 80053; 81001; 82550; 82553; 83605; 84484; 85025; 85610; 85730; 87040; 87086; 87635; 93005; A4216; J2405; J7030

== ENCOUNTER → 2020-05-29 | Outpatient (CLI) | payer MEDICARE, OTHER | LOC: GMAE 15:07 | PROVIDERS: ATTEND Family Medicine | DX: N39.0 Urinary tract infection, site not specified (principal) ==